=== PATIENT | female | born 1930 | race African-American/Black ===

== ENCOUNTER 2018-11-02 16:05 | Inpatient (IN) | payer MEDICARE, OTHER ==
[~2018-11-02] VITALS: Ht 162.6 cm; Wt 49.9 kg
--- NOTE | 2018-11-02 16:20 | NUR ---
ED Nurse Note: Patient brought into ED by her daughter from home due to left lower leg, foot swelling for 3 days. Daughter also reports that she is leaning towards her left side for 2 days. patient is alert awake, able to answer questions breathing unlabored and even.
--- NOTE | 2018-11-02 16:30 | Emergency Room Report ---
History of Present Illness General Chief Complaint: General Complaint Present Illness HPI Disclaimer: Please note that this report is being documented using [employer] technology. This can lead to erroneous entry secondary to incorrect interpretation by the dictating instrument. HPI: 88-year-old female with history of parkinsonism presents for evaluation of pain and swelling in the left leg. Symptoms have been present for approximately 4 days according to her daughter who is her primary chemic mangler. Cannot recall an injury or fall. Daughter notes that there have been several spiders found in the house and is afraid her mother may have been bitten by one. They note worsening swelling over the dorsum of the foot, left ankle, left calf and of the left knee. She is unable to fully extend the left knee due to pain and swelling. Patient usually ambulates with assistance and can no longer use a walker on her own due to increased tremors and worsening weakness. They deny fever, chills, cough, chest pain, shortness of breath, abdominal pain, vomiting, diarrhea or other signs of infection. No recent cuts/scrapes that either can recall. Denies history of gout or other inflammatory changes. Does have a history of osteoarthritis daughter also points out that her mother feels like she has been increasingly weak on the left side for over 1 month. They discussed this with her PMD at her last visit several weeks ago but no further work-up was performed. No change in that condition currently though they would like to be evaluated for it. PMH: Parkinson disease, osteoarthritis PSH: See chart Allergies: Penicillin, sulfa listed in medical record Social Hx: Denies drug or alcohol abuse Allergies: Coded Allergies: PENICILLINS (Unverified Allergy, Unknown, 11/02/18) SULFA (SULFONAMIDE ANTIBIOTICS) (Unverified Allergy, Unknown, 11/02/18) Uncoded Allergies: PENICILLIN (Allergy, Unknown, 11/02/18) SULFA (Allergy, Unknown, 11/02/18) Physical Exam Vital Signs Date Time Temp Pulse Resp B/P (MAP) Pulse Ox O2 Delivery O2 Flow Rate FiO2 11/02/18 16:11 98.8 96 20 166/71 (102) 99 Room Air General: Awake and alert, no acute distress HEENT: NC/AT. EOMI. Cardiovascular: Tachycardic. S1 and S2 normal. No murmur appreciated Resp: Normal work of breathing. No cough, wheezing or crackles appreciated Abdomen: Abdomen is soft, nondistended. Nontender Skin: Intact. No abrasions, laceration or rash over the exposed skin MSK: Decreased bulk bilaterally, frail. Moving all extremities. Knees are held in flexion bilaterally though significant pain with active and passive extension of the left knee. There is asymmetry in the lower extremities with 3 + pitting edema over the dorsum of the foot, left ankle, enlargement of the left calf and circumferential swelling of the left knee. There is overlying erythema and warmth at the left knee. There are palpable DP pulses bilaterally and there is good cap refill distally in the lower extremities. She is able to flex and extend the toes with limited flexion extension at the ankle secondary to swelling. This is stable. Neuro: Awake and alert. Mentating appropriately. Tremulous in the upper extremities. Sensation is intact over the dermatomes of the lower extremities bilaterally. Procedures Critical Care Time Critical Care Time Total critical care time: Approximately 45 minutes Due to a high probability of clinically significant, life threatening deterioration, the patient required the highest level of preparedness to intervene emergently and I personally spent this critical care time directly and personally managing the patient. This critical care time included obtaining a history, examining the patient, pulse oximetry, ordering and reviewing studies , ordering treatments, evaluating response to treatment and updating management plan as needed, frequent reassessment and discussion with other providers as well as arranging for ultimate disposition. This critical to care time was performed to assess and manage the high probability of life-threatening deterioration that could result in multiorgan failure. This critical care time is separate from the separately billable procedures and treating other patients. Additional Procedure Procedure Narrative Arthrocentesis left knee: He was palpated and appropriate landmarks were marked using a skin marking pen. Chlorhexidine was used to sterilize the field and sterile drapes were applied. Area was anesthetized with approximately 7 cc 1% lidocaine. A lateral approach of the left knee was taken with return of approximately 5 cc straw-colored, clear fluid. Patient tolerated the procedure well. No significant blood loss. No complications. She was neurologically intact at the start and end of the procedure. Medical Decision Making Diagnostic Impression: Primary Impression: DVT (deep venous thrombosis) Additional Impressions: UTI (urinary tract infection) Unilateral weakness Knee pain ER Course 88-year-old female presents for evaluation of 4 days worsening left lower extremity swelling, pain. She is tachycardic but afebrile. Differential includes but is not limited to osteoarthritis, DVT, occult injury, septic joint , gout, pseudogout, bursitis. Regarding the patient's left-sided weakness for rater than 1 month she can be followed up with nonemergent MRI however in the emergency department for us to rule out infectious causes of this lower extremity swelling as well as thromboembolic causes. Will obtain a lower extremity Doppler study and start septic work-up including blood cultures, IV fluids. X-rays of the knee are ordered. Can perform a arthrocentesis as needed. Laboratory Tests Test 11/02/18 16:25 11/02/18 18:21 11/02/18 18:59 White Blood Count 17.5 K/UL (4.8-10.8) H Red Blood Count 3.30 M/UL (4.20-5.40) L Hemoglobin 10.1 G/DL (12.0-16.0) L Hematocrit 30.2 % (37.0-47.0) L Mean Corpuscular Volume 92 FL (80-99) Mean Corpuscular Hemoglobin 30.4 PG (27.0-31.0) Mean Corpuscular Hemoglobin Concent 33.3 G/DL (32.0-36.0) Red Cell Distribution Width 11.0 % (11.6-14.8) L Platelet Count 427 K/UL (150-450) Mean Platelet Volume 6.1 FL (6.5-10.1) L Neutrophils (%) (Auto) 78.0 % (45.0-75.0) H Lymphocytes (%) (Auto) 13.0 % (20.0-45.0) L Monocytes (%) (Auto) 7.3 % (1.0-10.0) Eosinophils (%) (Auto) 0.5 % (0.0-3.0) Basophils (%) (Auto) 1.2 % (0.0-2.0) Erythrocyte Sedimentation Rate 96 MM/HR (0-30) H Prothrombin Time 10.5 SEC (9.30-11.50) Prothrombin Time INR 1.0 (0.9-1.1) PTT 30 SEC (23-33) Sodium Level 141 MMOL/L (136-145) Potassium Level 4.0 MMOL/L (3.5-5.1) Chloride Level 103 MMOL/L (98-107) Carbon Dioxide Level 28 MMOL/L (21-32) Anion Gap 10 mmol/L (5-15) Blood Urea Nitrogen 32 mg/dL (7-18) H Creatinine 0.8 MG/DL (0.55-1.30) Estimate Glomerular Filtration Rate mL/min (>60) Glucose Level 134 MG/DL (74-106) H Lactic Acid Level 1.60 mmol/L (0.4-2.0) Calcium Level 10.1 MG/DL (8.5-10.1) Phosphorus Level 2.6 MG/DL (2.5-4.9) Magnesium Level 2.3 MG/DL (1.8-2.4) Total Bilirubin 0.7 MG/DL (0.2-1.0) Aspartate Amino Transferase (AST) 13 U/L (15-37) L Alanine Aminotransferase (ALT) 28 U/L (12-78) Alkaline Phosphatase 51 U/L (46-116) Total Creatine Kinase 54 U/L (26-308) Creatine Kinase MB 0.9 NG/ML (0.0-3.6) Creatine Kinase MB Relative Index 1.6 Troponin I 0.000 ng/mL (0.000-0.056) C-Reactive Protein, Quantitative 17.7 mg/dL (0.00-0.90) H Total Protein 7.4 G/DL (6.4-8.2) Albumin 2.4 G/DL (3.4-5.0) L Globulin 5.0 g/dL Albumin/Globulin Ratio 0.5 (1.0-2.7) L Body Fluid Source Pending Body Fluid Volume Pending Body Fluid Appearance Pending Body Fluid RBC Pending Body Fluid Total Nucleated Cells Pending Synovial Fluid Crystals Pending Urine Color Yellow Urine Appearance Very cloudy Urine pH 6.5 (4.5-8.0) Urine Specific [place] 1.015 (1.005-1.035) Urine Protein 3+ (NEGATIVE) H Urine Glucose (UA) Negative (NEGATIVE) Urine Ketones 1+ (NEGATIVE) H Urine Blood 5+ (NEGATIVE) H Urine Nitrite Positive (NEGATIVE) H Urine Bilirubin Negative (NEGATIVE) Urine Urobilinogen Normal MG/DL (0.0-1.0) Urine Leukocyte Esterase 3+ (NEGATIVE) H Urine RBC 20-30 /HPF (0 - 2) H Urine WBC 40-60 /HPF (0 - 2) H Urine Squamous Epithelial Cells Few /LPF (NONE/OCC) Urine Bacteria Many /HPF (NONE) H EKG Diagnostic Results EKG Time: 16:33 Rate: tachycardiac Rhythm: NSR ST Segments: no acute changes Other Impression Sinus tachycardia, normal axis, normal intervals. No acute ST changes. Rhythm Strip Diag. Results Rhythm Strip Time: 16:33 EP Interpretation: yes Rate: 100s Rhythm: no PVC's, no ectopy Chest X-Ray Diagnostic Results Chest X-Ray Diagnostic Results : # of Views/Limited/Complete: 1 View Indication: Other - Sepsis EP Interpretation: Yes Interpretation: no consolidation, no effusion, no pneumothorax Impression: No acute disease Electronically Signed by: Electronically signed by Dr. Sarkis Mason Other X-Ray Diagnostic Results Other X-Ray Diagnostic Results : X-Ray ordered: Left knee # of Views/Limited Vs Complete: 3 View Indication: Swelling EP Interpretation: Yes Interpretation: other - Soft tissue swelling, no obvious fracture, loss of joint space Impression: Other - Soft tissue swelling Electronically Signed by: Electronically signed by Dr. Sarkis Mason Reevaluation Time: 19:17 Last Vital Signs Date Time Temp Pulse Resp B/P (MAP) Pulse Ox O2 Delivery O2 Flow Rate FiO2 11/02/18 16:11 98.8 96 20 166/71 (102) 99 Room Air Reevaluation Impression Lab work showed an elevated white count at 17.5 with a left shift and is elevated ESR and CRP concerning for septic joint. An arthrocentesis was performed which extracted straw-colored though clear fluid which is being sent for analysis. Lab work otherwise showed normal electrolytes, normal renal function, lactate within normal limits. Appears to have a urinary tract infection as well with 20-40 white cells, nitrate and leukocyte esterase positive urine and many bacteria. She was given vancomycin and ceftriaxone for treatment of septic joint empirically after arthrocentesis was performed. Lower extremity Doppler studies also showed acute DVT. She was given enoxaparin. She will require admission for treatment of UTI, possible septic joint, lower extremity DVT and for evaluation of greater than 1 month left- sided weakness. Disposition: XFER SHT-TRM HOSP Condition: Serious Sarkis Mason MD Nov 02, 2018 16:30
[2018-11-02] MEDS ORDERED: MULTIVITAMINS1 EAC8 ORAL (16:36)
[2018-11-02 16:51] LABS: BASOPHILS % (AUTO) 1.2 % (0.0-2.0); EOSINOPHILS % (AUTO) 0.5 % (0.0-3.0); HEMATOCRIT 30.2 % (37.0-47.0); HEMOGLOBIN 10.1 G/DL (12.0-16.0); MEAN CORPUSCULAR VOLUME 92 FL (80-99); MONOCYTES % (AUTO) 7.3 % (1.0-10.0); PLATELET COUNT 427 K/UL (150-450); WHITE BLOOD COUNT 17.5 K/UL (4.8-10.8)
[2018-11-02 16:52] VITALS: BP 168/71
[2018-11-02 16:59] LABS: ANION GAP 10 mmol/L (5-15); BLOOD UREA NITROGEN 32 mg/dL (7-18); CALCIUM 10.1 MG/DL (8.5-10.1); CARBON DIOXIDE 28 MMOL/L (21-32); CHLORIDE 103 MMOL/L (98-107); CREATININE 0.8 MG/DL (0.55-1.30); SODIUM 141 MMOL/L (136-145)
[2018-11-02 17:12] LABS: ALANINE AMINOTRANSFERASE 28 U/L (12-78); ALBUMIN 2.4 G/DL (3.4-5.0); ALBUMIN/GLOBULIN RATIO 0.5 (1.0-2.7); ALKALINE PHOSPHATASE 51 U/L (46-116); ASPARTATE AMINO TRANSFERASE 13 U/L (15-37); BILIRUBIN,TOTAL 0.7 MG/DL (0.2-1.0); CKMB 0.9 NG/ML (0.0-3.6); CREATINE KINASE 54 U/L (26-308); PHOSPHORUS 2.6 MG/DL (2.5-4.9)
[2018-11-02] MEDS ORDERED: Lidocaine 1% 10mg/ml/Epi 0.005mg/ml 10ml vial INJ ONE (17:30)
[2018-11-02] MEDS ORDERED: cefTRIAXone 1 GM in NS 55 ML IVPB ONE (18:15)
[2018-11-02] MEDS ORDERED: Vancomycin 1 GM in NS 275 ML IVPB ONE (18:15)
[2018-11-02] MEDS ORDERED: Enoxaparin 80mg Inj SUBQ SCH ×2 (18:45→21:00)
[2018-11-02 18:46] VITALS: BP 159/50
--- NOTE | 2018-11-02 18:47 | NUR ---
ED Nurse Note: daughter at bedside. patient incontinent, changed linens, patient kept clean and dry.
--- NOTE | 2018-11-02 19:00 | NUR ---
ED Nurse Note: Indwelling mazariegos placed using sterile technique without complication.
[2018-11-02 19:06] LABS: APPEARANCE,URINE VERY CLOUDY; BILIRUBIN, URINE NEGATIVE (NEGATIVE); COLOR,URINE YELLOW; GLUCOSE, URINE (UA) NEGATIVE (NEGATIVE); KETONES,URINE 1+ (NEGATIVE); LEUKOCYTE ESTERASE ,URINE 3+ (NEGATIVE); NITRITE,URINE POSITIVE (NEGATIVE); PH,URINE 6.5 (4.5-8.0); PROTEIN,URINE 3+ (NEGATIVE); UROBILINOGEN,URINE NORMAL MG/DL (0.0-1.0)
--- NOTE | 2018-11-02 19:14 | NUR ---
HAND-OFF: Report given to Carol SALAS/ Yamileth RN. patient is stable in bed. daughter at bedside. warm blankets provided for the patient. water provided as requested.
--- NOTE | 2018-11-02 19:17 | NUR ---
ED Nurse Note: Received report from Dai SALAS. Patient alert and oriented, verbally responsive. No SOB. Safety precaution observed. Has temp 100.8, notified. Family members at bedside.
[2018-11-02 19:20] VITALS: BP 128/61
[2018-11-02] MEDS ORDERED: Acetaminophen 500mg (ES) tab ORAL ONE (19:30)
--- NOTE | 2018-11-02 19:45 | NUR ---
ED Nurse Note: noted mazariegos cath 16 fr, patent and intact, per RN Dai report, ERMD ordered mazariegos cath, verified with ERMD and reminded regarding order, will follow up.
--- NOTE | 2018-11-02 20:20 | NUR ---
ED Nurse Note: Report given to Gómez SALAS from Tele.
[2018-11-02 20:25] VITALS: BP 145/76
--- NOTE | 2018-11-02 20:25 | NUR ---
ED Nurse Note: pt transferred to tele on secured entrance monitor, Sinus rhythm, vss, resp even and unlabored on RA, iv intact and patent, pt has no belongings, belonging list sent, belongings were endorsed to pt's daughter. pt family at the bedside. care endorsed to MARITZA Magaña from tele.
--- NOTE | 2018-11-02 20:26 | NUR ---
NURSE NOTES: pt received from MARITZA oMntejo. a/ox3. no s/s of distress. VS 145/76, 87 HR, 97% ra, 99.5F, 18. no reports of pain. accompanied by daughter at bedside. pt has partial thickness ulcer on sacral area 2x1 cm, blister noted on left medial bunion. wound care photos taken, wound care protocol initiated. belongings with pt at bedside upon transfer - gait belt, pants, shirt and flip flops. per family member, she will take home the belongings. surveillance monitor on - sinus rhythm 85. pt arrived on unit with mazariegos, patent and draining. IV site on left arm 20 gauge, asymptomatic.
--- NOTE | 2018-11-02 22:15 | NUR ---
NURSE NOTES: per pt and family member, pt only takes multivitamin. received admission orders from Dr Sloan, noted and carried out. will continue to monitor pt.
[2018-11-03] VITALS: BP 153/49
--- NOTE | 2018-11-03 02:45 | Consultation ---
DATE OF CONSULTATION: 11/02/2018 CARDIOLOGY CONSULTATION CONSULTING PHYSICIAN: Ramy Franks M.D. REQUESTING PHYSICIAN: Anastacio Sloan M.D. REASON FOR CONSULTATION: Acute deep venous thrombosis of the left lower extremity. HISTORY OF PRESENT ILLNESS: This is an 88-year-old female. She has Parkinson's disease. She has had swelling and pain of her left leg for several weeks and even a month, weakness of the extremity has been noted as well. She has not had any associated chest pain or shortness of breath. There has been worsening redness and swelling of the left foot, calf, and knee especially and limited mobility as well. The patient's evaluation in the emergency room included a venous duplex scan that revealed an acute thrombus. Cardiovascular consultation has been requested. PAST MEDICAL HISTORY: Includes Parkinson's disease and osteoarthritis. ALLERGIES: Include sulfa and penicillin. MEDICATIONS: Prior to admission, reviewed and reconciled. SOCIAL HISTORY: Negative for smoking, alcohol, or substance abuse. FAMILY HISTORY: Noncontributory. REVIEW OF SYSTEMS: No fevers or chills. No prior history of abnormal blood clotting. No history of asthma. No history of heart attack or high blood pressure. She does have arthritis. No history of seizure or stroke. No known history of diabetes or thyroid disorder. No known history of heart attack, irregular heartbeats, or rheumatic heart disease. PHYSICAL EXAMINATION: VITAL SIGNS: Blood pressure 166/71, pulse 96, respirations 20, afebrile. HEENT: Normocephalic and atraumatic. Conjunctivae pink. Oropharynx clear. NECK: Supple. No accessory muscle use. LUNGS: Clear. CARDIAC: Regular rhythm. Rapid rate. Normal S1, S2. No murmur. Point of maximal pulse sustained. No heaves or thrills. ABDOMEN: Soft and nontender. EXTREMITIES: Without edema other than the left leg, which is swollen and has 3+ edema and decreased mobility of the knee joint as well as tenderness in the calf. LABORATORY DATA: Reviewed. IMPRESSION: 1. Acute DVT, possible pulmonary emboli. 2. Sinus tachycardia. 3. Urinary tract infection. 4. History of Parkinson's disease. 5. Leukocytosis, possible sepsis. 6. Severe protein-calorie malnutrition. 7. Prerenal azotemia. PLAN: 1. Cardiac monitoring. 2. Full anticoagulation. 3. Consider VQ scan. 4. Empiric antimicrobials. 5. No role for antiarrhythmics at this time. 6. Maintain adequate hydration. 7. We will follow. Ramy Fransk M.D. DR: NICOLE JOB#: [id number] CC:
[2018-11-03 04:00] VITALS: BP 146/53
[2018-11-03 06:43] LABS: BASOPHILS % (AUTO) 0.8 % (0.0-2.0); EOSINOPHILS % (AUTO) 1.7 % (0.0-3.0); HEMATOCRIT 29.4 % (37.0-47.0); HEMOGLOBIN 9.1 G/DL (12.0-16.0); LYMPHOCYTES % (AUTO) 14.5 % (20.0-45.0); MEAN CORPUSCULAR VOLUME 97 FL (80-99); MONOCYTES % (AUTO) 8.5 % (1.0-10.0); NEUTROPHILS % (AUTO) 74.5 % (45.0-75.0); PLATELET COUNT 404 K/UL (150-450); RED BLOOD COUNT 3.05 M/UL (4.20-5.40); RED CELL DISTRIBUTION WIDTH 12.2 % (11.6-14.8)
[2018-11-03 07:17] LABS: ANION GAP 10 mmol/L (5-15); BLOOD UREA NITROGEN 23 mg/dL (7-18); CALCIUM 9.4 MG/DL (8.5-10.1); CARBON DIOXIDE 23 MMOL/L (21-32); CHLORIDE 108 MMOL/L (98-107); CREATININE 0.6 MG/DL (0.55-1.30); POTASSIUM 3.6 MMOL/L (3.5-5.1); SODIUM 141 MMOL/L (136-145)
[2018-11-03] MEDS ORDERED: Enoxaparin 60mg Inj SUBQ SCH (07:30)
--- NOTE | 2018-11-03 07:51 | NUR ---
HAND-OFF: Report given to MARITZA Zendejas. Plan of care endorsed.
--- NOTE | 2018-11-03 07:56 | NUR ---
NURSE NOTES: Nurse report given by MARITZA Magaña. Patient's resting in bed, denies pain, no s/s of stress or SOB. Patient is bed rest, IV is patent and flushed well, asymptomatic. Bed at lowest position, break engaged, call light within reach, side rails x 2, safety precaution is on. Piña is draining well. L leg is swollen below the knee, left foot blister, sacral wound, pictures are taken. Will continue to monitor.
[2018-11-03 08:00] VITALS: BP 149/65
--- NOTE | 2018-11-03 09:29 | NUR ---
CASE MANAGEMENT:REVIEW 88 YR OLD FEMALE BROUGHT TO ER BY DAUGHTER CC: LLE SWELLING WITH REDNESS X2 DAYS SI: DVT. UTI. KNEE PAIN UNILATERAL WEAKNESS 100.8 96 20 166/71 99% ON RA WBC+17.5 IS: 1.5L NS BOLUS IV VANCOMYCIN IV ROCEPHIN LOVENOX SQ XRAY KNEE CHEST XRAY BLOOD CX LT KNEE ASPIRATION IN ER : TO TELEMETRY PLAN: WORK UP IN PROGRESS ~ POSSIBLE SEPTIC JOINT INTERQUAL CRITERIA MET
--- NOTE | 2018-11-03 10:41 | Diagnostic Imaging Report ---
Indication: Left lower extremity pain Technique: Grayscale and duplex images of the left lower extremity veins Comparison: none Findings: On the left, grayscale and duplex images demonstrate occlusive thrombus within the common femoral, femoral, and popliteal veins. This results in absence of blood flow and noncompressibility. Thrombus is somewhat hypoechoic, likely acute. There is edema of the subcutaneous fat. Calf veins are patent. Impression: Positive for acute thrombus within the left common femoral, femoral, and popliteal veins This agrees with the preliminary interpretation provided overnight by Dr. Muro
--- NOTE | 2018-11-03 10:54 | NUR ---
*-* INSURANCE *-* ALL CLINICALS AND REVIEWS HAVE BEEN FAXED TO: ANDRADE KOVACS [facility]#[id number] [employer] FIELD SUPERVISOR: QUINN #[phone] FAX#[phone] REVIEWS/CLINICALS
[2018-11-03 12:00] VITALS: BP 135/54
--- NOTE | 2018-11-03 12:28 | Infectious Diseases Prog Note ---
Assessment/Plan Assessment/Plan Full consult dictated: A) 1) uti/pyelonephritis, sepsis, leukocytosis, fevers 2) left foot/great toe cellulitis, possible abscess 3) dvt 4) pmh noted 5) allergies - pcn, sulfa P) 1) vancomycin, amikacin, vancomycin 2) check cultures, surgery evaluation right foot 3) monitor labs 4) thank you Subjective Allergies: Coded Allergies: PENICILLINS (Unverified Allergy, Unknown, 11/02/18) SULFA (SULFONAMIDE ANTIBIOTICS) (Unverified Allergy, Unknown, 11/02/18) Uncoded Allergies: PENICILLIN (Allergy, Unknown, 11/02/18) SULFA (Allergy, Unknown, 11/02/18) Objective Vital Signs Last 24 Hour Vital Signs Date Time Temp Pulse Resp B/P (MAP) Pulse Ox O2 Delivery O2 Flow Rate FiO2 11/03/18 12:00 98.8 90 20 135/54 (81) 97 11/03/18 09:00 Room Air 11/03/18 08:00 97.8 99 18 149/65 (93) 96 11/03/18 08:00 87 11/03/18 04:00 99.1 82 16 146/53 (84) 97 11/03/18 04:00 80 11/03/18 00:00 98.6 77 18 153/49 (83) 96 11/03/18 00:00 74 11/02/18 21:00 Room Air 11/02/18 20:55 Room Air 11/02/18 20:41 88 11/02/18 20:25 99.2 87 16 123/86 98 Room Air 11/02/18 20:25 99.5 85 19 145/76 (99) 97 11/02/18 19:54 100.8 11/02/18 19:40 92 18 Room Air 11/02/18 19:20 100.8 92 28 128/61 100 Room Air 11/02/18 18:46 98.8 92 21 159/50 100 Room Air 11/02/18 16:53 96 20 Room Air 11/02/18 16:52 98.8 91 22 168/71 98 Room Air 11/02/18 16:11 98.8 96 20 166/71 (102) 99 Room Air Height (Feet): 5 Height (Inches): 4.00 Weight (Pounds): 110 Microbiology Date/Time Source Procedure Growth Status 11/02/18 18:59 Urine,Clean Catch Urine Culture - Preliminary Resulted Laboratory Tests Test 11/02/18 16:25 11/02/18 18:21 11/02/18 18:59 11/03/18 05:42 White Blood Count 17.5 K/UL (4.8-10.8) H 14.0 K/UL (4.8-10.8) H Red Blood Count 3.30 M/UL (4.20-5.40) L 3.05 M/UL (4.20-5.40) L Hemoglobin 10.1 G/DL (12.0-16.0) L 9.1 G/DL (12.0-16.0) L Hematocrit 30.2 % (37.0-47.0) L 29.4 % (37.0-47.0) L Mean Corpuscular Volume 92 FL (80-99) 97 FL (80-99) Mean Corpuscular Hemoglobin 30.4 PG (27.0-31.0) 29.8 PG (27.0-31.0) Mean Corpuscular Hemoglobin Concent 33.3 G/DL (32.0-36.0) 30.9 G/DL (32.0-36.0) L Red Cell Distribution Width 11.0 % (11.6-14.8) L 12.2 % (11.6-14.8) Platelet Count 427 K/UL (150-450) 404 K/UL (150-450) Mean Platelet Volume 6.1 FL (6.5-10.1) L 6.5 FL (6.5-10.1) Neutrophils (%) (Auto) 78.0 % (45.0-75.0) H 74.5 % (45.0-75.0) Lymphocytes (%) (Auto) 13.0 % (20.0-45.0) L 14.5 % (20.0-45.0) L Monocytes (%) (Auto) 7.3 % (1.0-10.0) 8.5 % (1.0-10.0) Eosinophils (%) (Auto) 0.5 % (0.0-3.0) 1.7 % (0.0-3.0) Basophils (%) (Auto) 1.2 % (0.0-2.0) 0.8 % (0.0-2.0) Erythrocyte Sedimentation Rate 96 MM/HR (0-30) H Prothrombin Time 10.5 SEC (9.30-11.50) Prothromb Time International Ratio 1.0 (0.9-1.1) Activated Partial Thromboplast Time 30 SEC (23-33) Sodium Level 141 MMOL/L (136-145) 141 MMOL/L (136-145) Potassium Level 4.0 MMOL/L (3.5-5.1) 3.6 MMOL/L (3.5-5.1) Chloride Level 103 MMOL/L (98-107) 108 MMOL/L (98-107) H Carbon Dioxide Level 28 MMOL/L (21-32) 23 MMOL/L (21-32) Anion Gap 10 mmol/L (5-15) 10 mmol/L (5-15) Blood Urea Nitrogen 32 mg/dL (7-18) H 23 mg/dL (7-18) H Creatinine 0.8 MG/DL (0.55-1.30) 0.6 MG/DL (0.55-1.30) Estimat Glomerular Filtration Rate mL/min (>60) mL/min (>60) Glucose Level 134 MG/DL (74-106) H 106 MG/DL (74-106) Lactic Acid Level 1.60 mmol/L (0.4-2.0) Calcium Level 10.1 MG/DL (8.5-10.1) 9.4 MG/DL (8.5-10.1) Phosphorus Level 2.6 MG/DL (2.5-4.9) Magnesium Level 2.3 MG/DL (1.8-2.4) Total Bilirubin 0.7 MG/DL (0.2-1.0) Aspartate Amino Transf (AST/SGOT) 13 U/L (15-37) L Alanine Aminotransferase (ALT/SGPT) 28 U/L (12-78) Alkaline Phosphatase 51 U/L (46-116) Total Creatine Kinase 54 U/L (26-308) Creatine Kinase MB 0.9 NG/ML (0.0-3.6) Creatine Kinase MB Relative Index 1.6 Troponin I 0.000 ng/mL (0.000-0.056) 0.000 ng/mL (0.000-0.056) C-Reactive Protein, Quantitative 17.7 mg/dL (0.00-0.90) H Total Protein 7.4 G/DL (6.4-8.2) Albumin 2.4 G/DL (3.4-5.0) L Globulin 5.0 g/dL Albumin/Globulin Ratio 0.5 (1.0-2.7) L Body Fluid Source Synovial Body Fluid Volume 2 mL Body Fluid Appearance Hazy (Clear) Body Fluid RBC 03660 /CUMM Body Fluid Total Nucleated Cells 574 /CUMM Synovial Fluid Crystals Pending Urine Color Yellow Urine Appearance Very cloudy Urine pH 6.5 (4.5-8.0) Urine Specific [place] 1.015 (1.005-1.035) Urine Protein 3+ (NEGATIVE) H Urine Glucose (UA) Negative (NEGATIVE) Urine Ketones 1+ (NEGATIVE) H Urine Blood 5+ (NEGATIVE) H Urine Nitrite Positive (NEGATIVE) H Urine Bilirubin Negative (NEGATIVE) Urine Urobilinogen Normal MG/DL (0.0-1.0) Urine Leukocyte Esterase 3+ (NEGATIVE) H Urine RBC 20-30 /HPF (0 - 2) H Urine WBC 40-60 /HPF (0 - 2) H Urine Squamous Epithelial Cells Few /LPF (NONE/OCC) Urine Bacteria Many /HPF (NONE) H Current Medications Medications (Trade) Dose Ordered Sig/[place] Route PRN Reason Start Time Stop Time Status Last Admin Dose Admin Acetaminophen (Tylenol) 650 mg Q6H PRN ORAL Mild Pain/Temp > 100.5 11/02/18 22:30 12/02/18 22:29 Enoxaparin Sodium (Lovenox) 50 mg Q12HR SUBQ 11/03/18 21:00 12/03/18 20:59 Levofloxacin 50 ml @ 50 mls/hr Q24H IVPB 11/04/18 00:30 11/11/18 00:29 Florina Young MD Nov 03, 2018 12:28
[2018-11-03] MEDS ORDERED: Amikacin Rx to dose MISC PRN (12:30)
--- NOTE | 2018-11-03 13:23 | NUR ---
RD ASSESSMENT & RECOMMENDATIONS SEE CARE ACTIVITY FOR COMPLETE ASSESSMENT DAILY ESTIMATED NEEDS: Needs based on Underweight, wound healing/ 49kg 30-35 kcals/kg 8814-2017 total kcals 1.25-1.5 g protein/kg 61-74 g total protein 25-30 mL/kg 7223-8225 total fluid mLs NUTRITION DIAGNOSIS: Increased kcal/prot needs R/T underweight status and wound healing as evidenced by pt @ 83% IBW w/ BMI of 17.4, admitted w/ sacral open wound per photo, pending eval. CURRENT DIET:REGULAR, finely chopped PO DIET RECOMMENDATIONS: Liberalized REGULAR/ texture as tolerated ADDITIONAL RECOMMENDATIONS: * Weekly calibrated bedscale wt monitoring- underweight * Wound healing: add MVI x 1, Vit C 500mg QD : add ZnSO4 220mg QD x 10 days : Terrell 1pkt BID * Ensure Enlive TID w/ meals * Monitor PO intake closely
--- NOTE | 2018-11-03 14:08 | Diagnostic Imaging Report ---
Indication: Shortness of breath Technique: One view of the chest Comparison: none Findings: No acute infiltrates, effusions, or congestion. Tortuous calcified aorta. Normal heart size. Upper mediastinum unremarkable. Impression: No acute process.
--- NOTE | 2018-11-03 14:09 | Diagnostic Imaging Report ---
Indication: Left knee pain Technique: 3 views of the left knee Comparison: None Findings: There is a suprapatellar effusion. There is severe degenerative narrowing of the lateral joint compartment, with obliteration of the joint space, subchondral sclerosis, and marked degenerative remodeling of the articular surfaces. No acute fractures. No dislocations. Impression: Evidence of joint effusion Severe lateral compartmental degenerative changes, as described No acute bony trauma
[2018-11-03] MEDS: Vancomycin 500mg/D5W 110ml IVPB SCH ×2 (14:13)
[2018-11-03 16:00] VITALS: BP 139/55
--- NOTE | 2018-11-03 16:19 | Consultation ---
History of Present Illness General Date patient seen: Nov 03, 2018 Reason for Hospitalization: General Complaint Present Illness HPI 88-year-old female with history of Parkinson's who presented [place] [facility] for evaluation of pain and swelling in the left leg. Symptoms have been present for approximately 4 days according to her daughter who is her primary assistant property manager. no history of trauma or injury. Per report, daughter notes that there have been several spiders found in the house and is afraid her mother may have been bitten by one in her foot. They note worsening swelling over the dorsum of the foot, left ankle, left calf and of the left knee. She is unable to fully extend the left knee due to pain and swelling. Patient usually ambulates with assistance and can no longer use a walker on her own due to increased tremors and worsening weakness. They deny fever, chills, cough, chest pain, shortness of breath, abdominal pain, vomiting, diarrhea or other signs of infection. No recent cuts/scrapes that either can recall. Denies history of gout or other inflammatory changes. Does have a history of osteoarthritis daughter also points out that her mother feels like she has been increasingly weak on the left side for over 1 month. They discussed this with her PMD at her last visit several weeks ago but no further work-up was performed. Admitted for care and management Surgery called to evaluate for possible animal bite vs trauma vs skin disorder / wound Allergies: Coded Allergies: PENICILLINS (Unverified Allergy, Unknown, 11/02/18) SULFA (SULFONAMIDE ANTIBIOTICS) (Unverified Allergy, Unknown, 11/02/18) Uncoded Allergies: PENICILLIN (Allergy, Unknown, 11/02/18) SULFA (Allergy, Unknown, 11/02/18) Medication History Scheduled Multivitamin With Minerals (Multivitamins With Minerals*), 1 TAB ORAL DAILY, ( Reported) Patient History Limited by: medical condition History Provided By: Family Member, Medical Record, PMD Healthcare decision maker Resuscitation status Full Code Advanced Directive on File No Past Medical/Surgical History Past Medical/Surgical History: (1) Cellulitis of left foot (2) UTI (urinary tract infection) (3) Knee pain (4) Unilateral weakness (5) DVT (deep venous thrombosis) Review of Systems Review of Symptoms General ROS: no weight loss or fever Psychological ROS: no depression or mood changes, no memory loss Ophthalmic ROS: no visual changes or eye irritation ENT ROS: no nasal congestion, hearing loss, dizziness Allergy and Immunology ROS: no allergic symptoms or urticaria Hematological and Lymphatic ROS: no swollen glands, unusual bleeding or bruising Endocrine ROS: no polyuria, polydipsia, weight changes, temperature intolerance Respiratory ROS: no cough, shortness of breath, or wheezing Cardiovascular ROS: no chest pain or dyspnea on exertion Gastrointestinal ROS: denies abdominal pain, no bright red blood in stool. Musculoskeletal ROS: no myalgias or arthralgias Neurological ROS: no TIA or stroke symptoms Dermatological ROS: no new or changing skin lesions, rashes or pruritis Physical Exam Physical Exam General appearance: alert, cooperative, no distress, appears stated age Head: Normocephalic, without obvious abnormality, atraumatic Eyes: conjunctivae/corneas clear. PERRL, EOM's intact. Fundi benign Throat: Lips, mucosa, and tongue normal. Teeth and gums normal Neck: supple, symmetrical, trachea midline, no adenopathy, thyroid: not enlarged, symmetric, no tenderness/mass/nodules, no carotid bruit and no JVD Lungs: clear to auscultation bilaterally Heart: regular rate and rhythm, S1, S2 normal, no murmur, click, rub or gallop Abdomen: soft, non-tender. Bowel sounds normal. No masses, no organomegaly Extremities: extremities normal, mild cellulitis vs edema of left foot Pulses: 2+ and symmetric Skin: Skin color, texture, turgor normal. No rashes or lesions Neurologic: Grossly normal Last 24 Hour Vital Signs Date Time Temp Pulse Resp B/P (MAP) Pulse Ox O2 Delivery O2 Flow Rate FiO2 11/03/18 12:00 91 11/03/18 12:00 98.8 90 20 135/54 (81) 97 11/03/18 09:00 Room Air 11/03/18 08:00 97.8 99 18 149/65 (93) 96 11/03/18 08:00 87 11/03/18 04:00 99.1 82 16 146/53 (84) 97 11/03/18 04:00 80 11/03/18 00:00 98.6 77 18 153/49 (83) 96 11/03/18 00:00 74 11/02/18 21:00 Room Air 11/02/18 20:55 Room Air 11/02/18 20:41 88 9/4/19 20:25 99.2 87 16 123/86 98 Room Air 11/02/18 20:25 99.5 85 19 145/76 (99) 97 11/02/18 19:54 100.8 11/02/18 19:40 92 18 Room Air 11/02/18 19:20 100.8 92 28 128/61 100 Room Air 11/02/18 18:46 98.8 92 21 159/50 100 Room Air 11/02/18 16:53 96 20 Room Air 11/02/18 16:52 98.8 91 22 168/71 98 Room Air Intake and Output 11/02/18 11/03/18 19:00 07:00 Intake Total 120 ml Output Total 300 ml Balance -180 ml Intake Oral 20 ml IV Total 100 ml Output Urine Total 300 ml Laboratory Tests Test 11/02/18 16:25 11/02/18 18:21 11/02/18 18:59 11/03/18 05:42 White Blood Count 17.5 K/UL (4.8-10.8) H 14.0 K/UL (4.8-10.8) H Red Blood Count 3.30 M/UL (4.20-5.40) L 3.05 M/UL (4.20-5.40) L Hemoglobin 10.1 G/DL (12.0-16.0) L 9.1 G/DL (12.0-16.0) L Hematocrit 30.2 % (37.0-47.0) L 29.4 % (37.0-47.0) L Mean Corpuscular Volume 92 FL (80-99) 97 FL (80-99) Mean Corpuscular Hemoglobin 30.4 PG (27.0-31.0) 29.8 PG (27.0-31.0) Mean Corpuscular Hemoglobin Concent 33.3 G/DL (32.0-36.0) 30.9 G/DL (32.0-36.0) L Red Cell Distribution Width 11.0 % (11.6-14.8) L 12.2 % (11.6-14.8) Platelet Count 427 K/UL (150-450) 404 K/UL (150-450) Mean Platelet Volume 6.1 FL (6.5-10.1) L 6.5 FL (6.5-10.1) Neutrophils (%) (Auto) 78.0 % (45.0-75.0) H 74.5 % (45.0-75.0) Lymphocytes (%) (Auto) 13.0 % (20.0-45.0) L 14.5 % (20.0-45.0) L Monocytes (%) (Auto) 7.3 % (1.0-10.0) 8.5 % (1.0-10.0) Eosinophils (%) (Auto) 0.5 % (0.0-3.0) 1.7 % (0.0-3.0) Basophils (%) (Auto) 1.2 % (0.0-2.0) 0.8 % (0.0-2.0) Erythrocyte Sedimentation Rate 96 MM/HR (0-30) H Prothrombin Time 10.5 SEC (9.30-11.50) Prothromb Time International Ratio 1.0 (0.9-1.1) Activated Partial Thromboplast Time 30 SEC (23-33) Sodium Level 141 MMOL/L (136-145) 141 MMOL/L (136-145) Potassium Level 4.0 MMOL/L (3.5-5.1) 3.6 MMOL/L (3.5-5.1) Chloride Level 103 MMOL/L (98-107) 108 MMOL/L (98-107) H Carbon Dioxide Level 28 MMOL/L (21-32) 23 MMOL/L (21-32) Anion Gap 10 mmol/L (5-15) 10 mmol/L (5-15) Blood Urea Nitrogen 32 mg/dL (7-18) H 23 mg/dL (7-18) H Creatinine 0.8 MG/DL (0.55-1.30) 0.6 MG/DL (0.55-1.30) Estimat Glomerular Filtration Rate mL/min (>60) mL/min (>60) Glucose Level 134 MG/DL (74-106) H 106 MG/DL (74-106) Lactic Acid Level 1.60 mmol/L (0.4-2.0) Calcium Level 10.1 MG/DL (8.5-10.1) 9.4 MG/DL (8.5-10.1) Phosphorus Level 2.6 MG/DL (2.5-4.9) Magnesium Level 2.3 MG/DL (1.8-2.4) Total Bilirubin 0.7 MG/DL (0.2-1.0) Aspartate Amino Transf (AST/SGOT) 13 U/L (15-37) L Alanine Aminotransferase (ALT/SGPT) 28 U/L (12-78) Alkaline Phosphatase 51 U/L (46-116) Total Creatine Kinase 54 U/L (26-308) Creatine Kinase MB 0.9 NG/ML (0.0-3.6) Creatine Kinase MB Relative Index 1.6 Troponin I 0.000 ng/mL (0.000-0.056) 0.000 ng/mL (0.000-0.056) C-Reactive Protein, Quantitative 17.7 mg/dL (0.00-0.90) H Total Protein 7.4 G/DL (6.4-8.2) Albumin 2.4 G/DL (3.4-5.0) L Globulin 5.0 g/dL Albumin/Globulin Ratio 0.5 (1.0-2.7) L Body Fluid Source Synovial Body Fluid Volume 2 mL Body Fluid Appearance Hazy (Clear) Body Fluid RBC 47285 /CUMM Body Fluid Total Nucleated Cells 574 /CUMM Synovial Fluid Crystals See commment Urine Color Yellow Urine Appearance Very cloudy Urine pH 6.5 (4.5-8.0) Urine Specific [place] 1.015 (1.005-1.035) Urine Protein 3+ (NEGATIVE) H Urine Glucose (UA) Negative (NEGATIVE) Urine Ketones 1+ (NEGATIVE) H Urine Blood 5+ (NEGATIVE) H Urine Nitrite Positive (NEGATIVE) H Urine Bilirubin Negative (NEGATIVE) Urine Urobilinogen Normal MG/DL (0.0-1.0) Urine Leukocyte Esterase 3+ (NEGATIVE) H Urine RBC 20-30 /HPF (0 - 2) H Urine WBC 40-60 /HPF (0 - 2) H Urine Squamous Epithelial Cells Few /LPF (NONE/OCC) Urine Bacteria Many /HPF (NONE) H Microbiology Date/Time Source Procedure Growth Status 11/02/18 18:59 Urine,Clean Catch Urine Culture - Preliminary Resulted Height (Feet): 5 Height (Inches): 4.00 Weight (Pounds): 110 Medications Current Medications Medications (Trade) Dose Ordered Sig/Preston Route PRN Reason Start Time Stop Time Status Last Admin Dose Admin Acetaminophen (Tylenol) 650 mg Q6H PRN ORAL Mild Pain/Temp > 100.5 11/02/18 22:30 12/02/18 22:29 Amikacin Protocol (Amikacin pharmacy to dose) 1 ea DAILY PRN MISC Per rx protocol 11/03/18 12:30 12/03/18 12:29 Amikacin Sulfate 750 mg/Sodium Chloride 113 ml @ 113 mls/hr Q48H IV 11/03/18 17:00 11/10/18 16:59 Enoxaparin Sodium (Lovenox) 50 mg Q12HR SUBQ 11/03/18 21:00 12/03/18 20:59 Levofloxacin 50 ml @ 50 mls/hr Q24H IVPB 11/04/18 00:30 11/11/18 00:29 Vancomycin HCl (Vanco rx to dose) 1 ea DAILY PRN MISC Per rx protocol 11/03/18 12:30 12/03/18 12:29 Vancomycin HCl 500 mg/Dextrose 110 ml @ 110 mls/hr Q24H IVPB 11/03/18 15:00 11/08/18 14:59 11/03/18 14:13 Assessment/Plan Problem List: (1) Cellulitis of left foot Assessment & Plan: Leukocytosis elevated ESR abnormal labs afebrile, HD stable does also have UTI wound evaluated and seems more like edema with skin blister. possible animal bite but unlikely as serous blister more consistent with exam will monitor and follow with recs thank you IV abx as per ID Tx UTI ICD Codes: L03.116 - Cellulitis of left lower limb SNOMED: [id number] (2) Knee pain Assessment & Plan: Findings: There is a suprapatellar effusion. There is severe degenerative narrowing of the lateral joint compartment, with obliteration of the joint space, subchondral sclerosis, and marked degenerative remodeling of the articular surfaces. No acute fractures. No dislocations. Impression: Evidence of joint effusion Severe lateral compartmental degenerative changes, as described No acute bony trauma no acute intervention planned outpatient ortho f/u and re-evaluation for possible aspiration ICD Codes: M25.569 - Pain in unspecified knee SNOMED: [id number] Jake Claire Nov 03, 2018 16:19
[2018-11-03] MEDS ORDERED: Amikacin 750 MG in NS 110 ML IV SCH (17:00)
--- NOTE | 2018-11-03 17:45 | Consultation ---
DATE OF CONSULTATION: 11/03/2018 CONSULTING PHYSICIAN: Felipe Verdugo M.D. CHIEF COMPLAINT: Left knee pain. HISTORY OF PRESENT ILLNESS: The patient is a pleasant 88-year-old female, who was recently admitted for a DVT in the left lower extremity. Orthopedic consultation obtained for further care and recommendations for the left knee. The patient has stiffness and pain in the left knee. She does have Parkinson's. She ambulates with assistance. PAST MEDICAL HISTORY: Reviewed in the intake chart. SURGICAL HISTORY: Reviewed in the intake chart. MEDICATIONS: Reviewed in the intake chart. PHYSICAL EXAMINATION: GENERAL: The patient is resting comfortably in bed. She does have Parkinson's. She is very slow in her speech. She is alert. VITAL SIGNS: Afebrile. Stable vital signs. EXTREMITIES: Left hip examination shows pain on the lateral joint line. She was some tenderness in the hamstring. Posterior calf is soft. IMAGING: Left knee showed advanced lateral compartment arthrosis with valgus deformity. ASSESSMENT: 1. Left knee end-stage osteoarthritis. 2. Left lower extremity DVT. DISCUSSION: At this point, she has pretty advanced lateral compartment arthrosis, but given her age and her comorbidities, she is not a good candidate for any type of surgical intervention. What I recommend is appropriate treatment for the blood clot. In terms of left knee, she can consider maybe a lateral off-front loader residential driver brace or intraarticular cortisone injection. If the patient still has any pain or discomfort, she can followup up as an outpatient for further care and recommendations. Felipe Verdugo M.D. DR: SERA JOB#: [id number] CC: CHRISTOPHER
--- NOTE | 2018-11-03 19:00 | History and Physical Report ---
DATE OF ADMISSION: 11/02/2018 HISTORY OF PRESENT ILLNESS: This 88-year-old female with a history of Parkinson disease. She is typically homebound, however, has a wheelchair. The patient's information provided by daughter at bedside. The patient has been reported swelling and pain in the left leg for several weeks and also weakness. She was seen and worked up in the ER and was found to have DVT of left popliteal. She also had significant swelling of the left knee and arthrocentesis was done. The patient was admitted to the hospital for subsequent management and care. PAST MEDICAL HISTORY: Notable for Parkinson disease and osteoarthritis. ALLERGIES: To penicillin and sulfa. HOME MEDICATIONS: Reviewed and reconciled in the chart and include currently only Lovenox and Levaquin. REVIEW OF SYSTEMS: Denies any headaches, hematemesis, melena, or hematochezia. PHYSICAL EXAMINATION: GENERAL: Reveals an elderly female. HEENT: Unremarkable. LUNGS: Clear breath sounds bilaterally. ABDOMEN: Soft. EXTREMITIES: The left lower extremity has 1+ edema. The left knee is swollen. NEUROLOGIC: The patient has a 3 to 5 hertz tremor of both upper extremities. She has very poor speech. LABORATORY DATA: Lab testing shows white count hemoglobin 10. Platelet count is normal. Chemistries are normal. Troponins are negative. Coags are negative. Urinalysis shows pyuria. Arthrocentesis was done, which shows nucleated red cells. IMPRESSION: 1. 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 2. UTI. 3. Parkinson. 4. DVT. DISCUSSION: 1. Admit to the hospital. 2. Continue Levaquin. Continue Lovenox. 3. We will consult orthopedics. 4. We will consult ID. 5. We will request physical therapy. 6. We will follow carefully. Anastacio Sloan M.D. DR: JENNY JOB#: [id number] CC:
--- NOTE | 2018-11-03 19:50 | NUR ---
OBTAINED REPORT FROM FLORIAN RN, PT RESTING IN BED.
--- NOTE | 2018-11-03 19:56 | NUR ---
NURSE NOTES:WOUND CARE NOTES:Pt presented on admission with multiple pressure injuries. L lower ext edematous. DTPI noted to sacrum. Base of wound maroon indurated with surrounding dark brown discoloration. Pt verbalized pain when affected area minimally palpated.(L)1.5cm x (W)1cm. Unstageable pressure injury R buttocks (L)2.5cm x (W)3cm. Base of wound has 100% slough with erythematous borders.(L)2.5cm x (W)3cm. Non-blanchable erythema periwound. #2 Serous blisters in close proximity noted to L hallux with surrounding non-blanching erythema.(L)1.7cm x (W)1cm. Both heels are boggy with non-blanching erythema. Tx.Plan:Cleanse Wound R buttocks with Saline. Apply Therahoney. Apply Moisture Barrier Paste periwound. Cover with Optifoam drsg. Change every 3 days and prn. Apply Moisture Barrier Paste to Sacrum. Cover with Optifoam drsg. Change every 3 days and prn. Apply Cavilon Skin Barrier to L hallux. cover with Optifoam drsg. Change every 7 days and prn. Apply Cavilon Skin Barrier to both heels. Cover each heel with Optifoam drsg. Change every 7 days and prn. APM/IVAN mattress overlay. Elevate L lower ext. with pillow. Reposition at least every 2hours or as tolerated. Off-load heels with pillow.
--- NOTE | 2018-11-03 19:58 | NUR ---
HAND-OFF: Report given to MARITZA Giordano. Plan of care endorsed. .
[2018-11-03 20:00] VITALS: BP 122/60
[2018-11-03] MEDS: Enoxaparin Sodium 300mg/3ml vial SUBQ SCH (21:41)
--- NOTE | 2018-11-04 00:15 | Progress Note ---
DATE: 11/03/2018 CARDIOLOGY PROGRESS NOTE SUBJECTIVE: The patient was seen in Orthopedic consultation today and it was felt that nonsurgical management would be recommended at this time. The patient remains on full anticoagulation for acute DVT of her left popliteal vein. The patient's blood pressure parameters are slowly improving since admission and tachycardia is less frequent. OBJECTIVE: VITAL SIGNS: Blood pressure 135/54 to 149/65, heart rate 85 to 99, respiratory rate 18 to 20, afebrile. HEENT: Conjunctivae pink. Oropharynx clear. NECK: Supple. LUNGS: Clear. CARDIAC: Regular. Normal S1, S2 with no murmur or heaves. ABDOMEN: Soft and obese. Tremor is noted. EXTREMITIES: 1+ left lower extremity edema, swelling of the knee, and erythema of toe. LABORATORY DATA: Troponins remained negative. Potassium 3.6, BUN 23, creatinine 0.6. White count 14, hemoglobin 9.1. IMPRESSION: 1. Cellulitis, left toe and knee. 2. Severe osteoarthritis. 3. Acute DVT. 4. Secondary sinus tachycardia. 5. No clinical signs of pulmonary embolic event. 6. Macrocytic anemia. PLAN: 1. Antimicrobials. 2. Antiinflammatory agents. 3. Full anticoagulation. 4. Check B12, folate levels. 5. Continue cardiac monitoring for now. Ramy Franks M.D. DR: TAB JOB#: [id number] CC:
[2018-11-04 01:00] VITALS: BP 141/90
[2018-11-04] MEDS: Levofloxacin 250mg/D5W 50ml IVPB SCH (01:15)
[2018-11-04 04:00] VITALS: BP 143/70
[2018-11-04 04:35] LABS: BASOPHILS % (AUTO) 0.8 % (0.0-2.0); EOSINOPHILS % (AUTO) 1.4 % (0.0-3.0); HEMATOCRIT 25.9 % (37.0-47.0); HEMOGLOBIN 8.3 G/DL (12.0-16.0); LYMPHOCYTES % (AUTO) 18.9 % (20.0-45.0); MEAN CORPUSCULAR VOLUME 96 FL (80-99); MONOCYTES % (AUTO) 9.9 % (1.0-10.0); NEUTROPHILS % (AUTO) 68.9 % (45.0-75.0); PLATELET COUNT 428 K/UL (150-450); RED BLOOD COUNT 2.71 M/UL (4.20-5.40); WHITE BLOOD COUNT 14.6 K/UL (4.8-10.8)
[2018-11-04 04:48] LABS: ANION GAP 9 mmol/L (5-15); BLOOD UREA NITROGEN 20 mg/dL (7-18); CALCIUM 8.9 MG/DL (8.5-10.1); CARBON DIOXIDE 25 MMOL/L (21-32); CHLORIDE 110 MMOL/L (98-107); CREATININE 0.7 MG/DL (0.55-1.30); POTASSIUM 3.8 MMOL/L (3.5-5.1); SODIUM 143 MMOL/L (136-145)
--- NOTE | 2018-11-04 07:10 | NUR ---
GAVE FULL REPORT TO COLTON SALAS, PT RESTING IN BED.
--- NOTE | 2018-11-04 07:45 | NUR ---
NURSE NOTES: Received report from MARITZA Sheppard. Patient in bed resting, no active s/s cardiac, respiratory distress noticed at this time. Patient AOx3-4, SR with HR 80. Family member at the bedside. Piña Catheter draining well to gravity. IV on left FA 20G, asymptomatic, patent, intact. Bed in lowest position, side rails upx3, call light within reach. Will continue to monitor.
[2018-11-04 08:00] VITALS: BP 145/56
--- NOTE | 2018-11-04 08:47 | Pulmonology Progress Note ---
Assessment/Plan Assessment/Plan IMPRESSION: 1. 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 2. UTI. 3. Parkinson. 4. DVT. DISCUSSION: 1. Improving slowly with improved leucocytosis 2. Continue Levaquin. Continue Lovenox. 3. Seen by orthopedics, ID and physical therapy. 4. DC planning for home in AM 5. Appreciate cardiac eval Subjective Interval Events: No fever. WBC better Constitutional: Reports: no symptoms HEENT: Repors: no symptoms Respiratory: Reports: no symptoms Cardiovascular: Reports: no symptoms Gastrointestinal/Abdominal: Reports: no symptoms Allergies: Coded Allergies: PENICILLINS (Unverified Allergy, Unknown, 11/02/18) SULFA (SULFONAMIDE ANTIBIOTICS) (Unverified Allergy, Unknown, 11/02/18) Uncoded Allergies: PENICILLIN (Allergy, Unknown, 11/02/18) SULFA (Allergy, Unknown, 11/02/18) Objective Last 24 Hour Vital Signs Date Time Temp Pulse Resp B/P (MAP) Pulse Ox O2 Delivery O2 Flow Rate FiO2 11/04/18 04:00 98.9 80 18 143/70 (94) 97 11/04/18 04:00 73 11/04/18 01:00 99.0 79 18 141/90 (107) 97 11/04/18 00:00 80 11/03/18 20:00 98.5 80 18 122/60 (80) 11/03/18 20:00 80 11/03/18 20:00 Room Air 11/03/18 19:00 85 11/03/18 16:00 98.2 87 18 139/55 (83) 97 11/03/18 12:00 91 11/03/18 12:00 98.8 90 20 135/54 (81) 97 11/03/18 09:00 Room Air Intake and Output 11/03/18 11/04/18 19:00 07:00 Intake Total 360 ml Output Total 350 ml Balance 10 ml Intake Oral 360 ml Output Urine Total 350 ml # Voids 2 General Appearance: no acute distress HEENT: normocephalic Respiratory/Chest: chest wall non-tender, lungs clear Cardiovascular: normal peripheral pulses, no gallop/murmur Microbiology Date/Time Source Procedure Growth Status 11/02/18 16:25 Blood Blood Culture - Preliminary NO GROWTH AFTER 24 HOURS Resulted 11/02/18 16:25 Blood Blood Culture - Preliminary NO GROWTH AFTER 24 HOURS Resulted 11/02/18 18:59 Urine,Clean Catch Urine Culture - Preliminary Resulted Laboratory Tests 11/04/18 04:26: White Blood Count 14.6H, Red Blood Count 2.71L, Hemoglobin 8.3L, Hematocrit 25.9L, Mean Corpuscular Volume 96, Mean Corpuscular Hemoglobin 30.5, Mean Corpuscular Hemoglobin Concent 31.9L, Red Cell Distribution Width 12.0, Platelet Count 428, Mean Platelet Volume 5.6L, Neutrophils (%) (Auto) 68.9, Lymphocytes (%) (Auto) 18.9L, Monocytes (%) (Auto) 9.9, Eosinophils (%) (Auto) 1.4, Basophils (%) (Auto) 0.8, Sodium Level 143, Potassium Level 3.8, Chloride Level 110H, Carbon Dioxide Level 25, Anion Gap 9, Blood Urea Nitrogen 20H, Creatinine 0.7, Estimat Glomerular Filtration Rate , Glucose Level 111H, Calcium Level 8.9, Vitamin B12 Level > 2000H, Folate 19.5, Random Amikacin Level 9.8 Current Medications Medications (Trade) Dose Ordered Sig/Preston Route PRN Reason Start Time Stop Time Status Last Admin Dose Admin Acetaminophen (Tylenol) 650 mg Q6H PRN ORAL Mild Pain/Temp > 100.5 11/02/18 22:30 12/02/18 22:29 11/04/18 01:16 Amikacin Protocol (Amikacin pharmacy to dose) 1 ea DAILY PRN MISC Per rx protocol 11/03/18 12:30 12/03/18 12:29 Amikacin Sulfate 200 mg/Dextrose 55.8 ml @ 110 mls/hr Q72H IV 11/04/18 18:00 11/11/18 17:59 Enoxaparin Sodium (Lovenox) 50 mg Q12HR SUBQ 11/03/18 21:00 12/03/18 20:59 11/03/18 21:41 Levofloxacin 50 ml @ 50 mls/hr Q24H IVPB 11/04/18 00:30 11/11/18 00:29 11/04/18 01:15 Vancomycin HCl (Vanco rx to dose) 1 ea DAILY PRN MISC Per rx protocol 11/03/18 12:30 12/03/18 12:29 Vancomycin HCl 500 mg/Dextrose 110 ml @ 110 mls/hr Q24H IVPB 11/03/18 15:00 11/08/18 14:59 11/03/18 14:13 Anastacio Sloan MD Nov 04, 2018 08:47
[2018-11-04] MEDS: Enoxaparin Sodium 300mg/3ml vial SUBQ SCH ×3 (08:59→20:59)
[2018-11-04 12:00] VITALS: BP 109/55
--- NOTE | 2018-11-04 13:23 | NUR ---
*-* INSURANCE *-* UPDATED CLINICALS HAVE BEEN FAXED TO: ANDRADE KOVACS [facility]#[id number] STUDENT FINANCE ADVISOR: QUINN PH#[phone] FAX#[phone] REVIEWS/CLINICALS
--- NOTE | 2018-11-04 14:36 | Surgery Progress Note ---
Surgery Progress Note Subjective Additional Comments no acute events comfortable stable exam stable more awake and responsive today no complaints states she is doing well Objective Last 24 Hour Vital Signs Date Time Temp Pulse Resp B/P (MAP) Pulse Ox O2 Delivery O2 Flow Rate FiO2 11/04/18 12:00 97.7 84 18 109/55 (73) 97 11/04/18 12:00 76 11/04/18 09:00 Room Air 11/04/18 08:00 77 11/04/18 08:00 98.3 75 18 145/56 (85) 98 11/04/18 04:00 98.9 80 18 143/70 (94) 97 11/04/18 04:00 73 11/04/18 01:00 99.0 79 18 141/90 (107) 97 11/04/18 00:00 80 11/03/18 20:00 98.5 80 18 122/60 (80) 11/03/18 20:00 80 11/03/18 20:00 Room Air 11/03/18 19:00 85 11/03/18 16:00 98.2 87 18 139/55 (83) 97 I&O Intake and Output 11/03/18 11/04/18 18:59 06:59 Intake Total 360 ml Output Total 350 ml Balance 10 ml Intake Oral 360 ml Output Urine Total 350 ml # Voids 2 Dressing: saturated Wound: clean Cardiovascular: RSR Respiratory: clear Abdomen: soft, non-tender, present bowel sounds Extremities: no cyanosis, other Laboratory Tests Test 11/04/18 04:26 White Blood Count 14.6 K/UL (4.8-10.8) H Red Blood Count 2.71 M/UL (4.20-5.40) L Hemoglobin 8.3 G/DL (12.0-16.0) L Hematocrit 25.9 % (37.0-47.0) L Mean Corpuscular Volume 96 FL (80-99) Mean Corpuscular Hemoglobin 30.5 PG (27.0-31.0) Mean Corpuscular Hemoglobin Concent 31.9 G/DL (32.0-36.0) L Red Cell Distribution Width 12.0 % (11.6-14.8) Platelet Count 428 K/UL (150-450) Mean Platelet Volume 5.6 FL (6.5-10.1) L Neutrophils (%) (Auto) 68.9 % (45.0-75.0) Lymphocytes (%) (Auto) 18.9 % (20.0-45.0) L Monocytes (%) (Auto) 9.9 % (1.0-10.0) Eosinophils (%) (Auto) 1.4 % (0.0-3.0) Basophils (%) (Auto) 0.8 % (0.0-2.0) Sodium Level 143 MMOL/L (136-145) Potassium Level 3.8 MMOL/L (3.5-5.1) Chloride Level 110 MMOL/L (98-107) H Carbon Dioxide Level 25 MMOL/L (21-32) Anion Gap 9 mmol/L (5-15) Blood Urea Nitrogen 20 mg/dL (7-18) H Creatinine 0.7 MG/DL (0.55-1.30) Estimat Glomerular Filtration Rate mL/min (>60) Glucose Level 111 MG/DL (74-106) H Calcium Level 8.9 MG/DL (8.5-10.1) Vitamin B12 Level > 2000 PG/ML (193-986) H Folate 19.5 NG/ML (8.6-58.9) Random Amikacin Level 9.8 ug/mL Plan Problems: (1) Cellulitis of left foot Assessment & Plan: Pt presented on admission with multiple pressure injuries. L lower ext edematous. DTPI noted to sacrum. Base of wound maroon indurated with surrounding dark brown discoloration. Pt verbalized pain when affected area minimally palpated.(L )1.5cm x (W)1cm. Unstageable pressure injury R buttocks (L)2.5cm x (W)3cm. Base of wound has 100 % slough with erythematous borders.(L)2.5cm x (W)3cm. Non-blanchable erythema periwound. #2 Serous blisters in close proximity noted to L hallux with surrounding non- blanching erythema.(L)1.7cm x (W)1cm. Both heels are boggy with non-blanching erythema. Tx.Plan: Cleanse Wound R buttocks with Saline. Apply Therahoney. Apply Moisture Barrier Paste periwound. Cover with Optifoam drsg. Change every 3 days and prn. Apply Moisture Barrier Paste to Sacrum. Cover with Optifoam drsg. Change every 3 days and prn. Apply Cavilon Skin Barrier to L hallux. cover with Optifoam drsg. Change every 7 days and prn. Apply Cavilon Skin Barrier to both heels. Cover each heel with Optifoam drsg. Change every 7 days and prn. APM/IVAN mattress overlay. Elevate L lower ext. with pillow. Reposition at least every 2hours or as tolerated. Off-load heels with pillow.Leukocytosis elevated ESR abnormal labs afebrile, HD stable does also have UTI will monitor and follow with recs thank you IV abx as per ID Tx UTI (2) Knee pain Assessment & Plan: Findings: There is a suprapatellar effusion. There is severe degenerative narrowing of the lateral joint compartment, with obliteration of the joint space, subchondral sclerosis, and marked degenerative remodeling of the articular surfaces. No acute fractures. No dislocations. Impression: Evidence of joint effusion Severe lateral compartmental degenerative changes, as described No acute bony trauma no acute intervention planned outpatient ortho f/u and re-evaluation for possible aspiration Jake Claire Nov 04, 2018 14:36
--- NOTE | 2018-11-04 15:11 | NUR ---
P.T NOTE: P.T CONSULT RECEIVED. OK TO PROCEED WITH EVALUATION AND MOBILIZATION. P.T COMPLETED AND TREATMENT INITIATED WITH DAUGHTER PRESENT AND INVOLVED. PATIENT IS AWAKE, ALERT, ORIENTED TO SELF AND PLACE BUT NOT TO TIME. .PATIENT PRESENTED WITH GENERALIZED WEAKNESS AND DECONDITIONING AND PAIN ON THE L KNEE AGGRAVATED BY MOVEMENT INITIATION. PATIENT CURRENTLY REQUIRED MAX A X 1 AND EXTENDED TIME TO INITIATE AND COMPLETE FULL TURN TO R/L SIDE OF THE USING BED RAIL AND COMPLETE SUPINE TO/FROM SITTING. PATIENT ABLE TO SIT AT THE EOB WITH BUE SUPPORT HOLDING ON TO THE BED RAIL. PATIENT IS TOO WEAK TO STAND AND TRANSFER. SKILLED P.T SERVICE IS WARRANTED TO IMPROVE HER STRENGTH, BALANCE AN D ACTIVITY TOLERANCE TO INCREASE HER MOBILITY INDEPENDENCE. RECOMMEND SNF FOR SHORT TERM REHAB VS HOME WITH P.T. THANK YOU FOR THIS REFERRAL.
[2018-11-04] MEDS: Vancomycin 500mg/D5W 110ml IVPB SCH ×2 (15:12)
[2018-11-04 16:00] VITALS: BP 141/54
--- NOTE | 2018-11-04 16:35 | NUR ---
CASE MANAGEMENT:REVIEW 11/04/18 SI: DVT. LT FOOT CELLULITIS 97.7 84 18 109/55 97% ON RA WBC+14.6 H/H-8.3/25.9 IS: IV AMIKACIN Q24 `IV LEVAQUIN Q24 IV VANCOMYCIN Q24 LOVENOX SQ Q12 : TELEMETRY STATUS
--- NOTE | 2018-11-04 16:41 | Infectious Diseases Prog Note ---
Assessment/Plan Assessment/Plan Full consult dictated: A) 1) gram neg uti/pyelonephritis, sepsis, leukocytosis, fevers 2) left foot cellulitis 3) dvt 4) pmh noted 5) allergies - pcn, sulfa P) 1) amikacin and levofloxacin, vancomycin 2) check cultures, surgery evaluation left foot noted 3) monitor labs 4) d/w family Subjective Allergies: Coded Allergies: PENICILLINS (Unverified Allergy, Unknown, 11/02/18) SULFA (SULFONAMIDE ANTIBIOTICS) (Unverified Allergy, Unknown, 11/02/18) Uncoded Allergies: PENICILLIN (Allergy, Unknown, 11/02/18) SULFA (Allergy, Unknown, 11/02/18) Objective Vital Signs Last 24 Hour Vital Signs Date Time Temp Pulse Resp B/P (MAP) Pulse Ox O2 Delivery O2 Flow Rate FiO2 11/04/18 12:00 97.7 84 18 109/55 (73) 97 11/04/18 12:00 76 11/04/18 09:00 Room Air 11/04/18 08:00 77 11/04/18 08:00 98.3 75 18 145/56 (85) 98 11/04/18 04:00 98.9 80 18 143/70 (94) 97 11/04/18 04:00 73 11/04/18 01:00 99.0 79 18 141/90 (107) 97 11/04/18 00:00 80 11/03/18 20:00 98.5 80 18 122/60 (80) 11/03/18 20:00 80 11/03/18 20:00 Room Air 11/03/18 19:00 85 Height (Feet): 5 Height (Inches): 4.00 Weight (Pounds): 110 Microbiology Date/Time Source Procedure Growth Status 11/02/18 16:25 Blood Blood Culture - Preliminary NO GROWTH AFTER 24 HOURS Resulted 11/02/18 16:25 Blood Blood Culture - Preliminary NO GROWTH AFTER 24 HOURS Resulted 11/02/18 18:59 Urine,Clean Catch Urine Culture - Preliminary Gram Negative Bacillus 1 Resulted Laboratory Tests Test 11/04/18 04:26 White Blood Count 14.6 K/UL (4.8-10.8) H Red Blood Count 2.71 M/UL (4.20-5.40) L Hemoglobin 8.3 G/DL (12.0-16.0) L Hematocrit 25.9 % (37.0-47.0) L Mean Corpuscular Volume 96 FL (80-99) Mean Corpuscular Hemoglobin 30.5 PG (27.0-31.0) Mean Corpuscular Hemoglobin Concent 31.9 G/DL (32.0-36.0) L Red Cell Distribution Width 12.0 % (11.6-14.8) Platelet Count 428 K/UL (150-450) Mean Platelet Volume 5.6 FL (6.5-10.1) L Neutrophils (%) (Auto) 68.9 % (45.0-75.0) Lymphocytes (%) (Auto) 18.9 % (20.0-45.0) L Monocytes (%) (Auto) 9.9 % (1.0-10.0) Eosinophils (%) (Auto) 1.4 % (0.0-3.0) Basophils (%) (Auto) 0.8 % (0.0-2.0) Sodium Level 143 MMOL/L (136-145) Potassium Level 3.8 MMOL/L (3.5-5.1) Chloride Level 110 MMOL/L (98-107) H Carbon Dioxide Level 25 MMOL/L (21-32) Anion Gap 9 mmol/L (5-15) Blood Urea Nitrogen 20 mg/dL (7-18) H Creatinine 0.7 MG/DL (0.55-1.30) Estimat Glomerular Filtration Rate mL/min (>60) Glucose Level 111 MG/DL (74-106) H Calcium Level 8.9 MG/DL (8.5-10.1) Vitamin B12 Level > 2000 PG/ML (193-986) H Folate 19.5 NG/ML (8.6-58.9) Random Amikacin Level 9.8 ug/mL Current Medications Medications (Trade) Dose Ordered Sig/Preston Route PRN Reason Start Time Stop Time Status Last Admin Dose Admin Acetaminophen (Tylenol) 650 mg Q6H PRN ORAL Mild Pain/Temp > 100.5 11/02/18 22:30 12/02/18 22:29 11/04/18 01:16 Amikacin Protocol (Amikacin pharmacy to dose) 1 ea DAILY PRN MISC Per rx protocol 11/03/18 12:30 12/03/18 12:29 Amikacin Sulfate 300 mg/Dextrose 56.2 ml @ 110.8 mls/ hr Q24H IV 11/04/18 21:00 11/11/18 20:59 Enoxaparin Sodium (Lovenox) 50 mg Q12HR SUBQ 11/03/18 21:00 12/03/18 20:59 11/04/18 08:59 Levofloxacin 50 ml @ 50 mls/hr Q24H IVPB 11/04/18 00:30 11/11/18 00:29 11/04/18 01:15 Vancomycin HCl (Vanco rx to dose) 1 ea DAILY PRN MISC Per rx protocol 11/03/18 12:30 12/03/18 12:29 Vancomycin HCl 500 mg/Dextrose 110 ml @ 110 mls/hr Q24H IVPB 11/03/18 15:00 11/08/18 14:59 11/04/18 15:12 Florina Young MD Nov 04, 2018 16:41
[2018-11-04] MEDS ORDERED: AMIKACIN IV SCH ×2 (18:00→21:00)
[2018-11-04] MEDS ORDERED: D5W IV SCH ×2 (18:00→21:00)
--- NOTE | 2018-11-04 18:15 | Consultation ---
DATE OF CONSULTATION: 11/04/2018 INFECTIOUS DISEASE CONSULTATION CONSULTING PHYSICIAN: Florina Young M.D. ATTENDING PHYSICIAN: Anastacio Sloan M.D. REFERRING PHYSICIAN: Anastacio Sloan M.D. REASON FOR CONSULTATION: Gram-negative UTI, pyelonephritis, sepsis, fevers, leukocytosis, and left foot cellulitis. CHIEF COMPLAINT: The patient's chief complaint coming in to the hospital is DVT. HISTORY OF PRESENT ILLNESS: This is an 88-year-old female, who comes in to [facility] with DVT. She also has left foot cellulitis and also looks like a gram-negative UTI, pyelonephritis with sepsis, fevers, leukocytosis, and complicated UTI. Infectious Disease consultation is requested. The patient is not a very good historian. Case was discussed with RN and the patient's family. The patient was started on amikacin, Levaquin, and vancomycin. She is allergic to penicillin. Urine culture with gram-negative organisms. Followup blood cultures are negative. The patient's left foot was seen by surgery and no acute surgical intervention, just treat for cellulitis. REVIEW OF SYSTEMS: CONSTITUTIONAL: The patient does have a Piña. She has no central line. She is more alert today. She did have generalized weakness and fatigue. HEAD AND NECK: No head pain or neck pain. CARDIAC: No chest pain. GASTROINTESTINAL: No nausea, vomiting, or diarrhea. GENITOURINARY: She has a Piña. PULMONARY: No congestion or shortness of breath. SKIN: No rash. EXTREMITIES: She has DVT in the left foot and pain. NEUROLOGIC: No seizures. PAST MEDICAL HISTORY: The patient's past medical history includes the history of the following: The patient has a past medical history of left knee osteoarthritis and was seen by Orthopedic surgery. She has history of Parkinson disease, DVT, and osteoarthritis. I believe she does have a history of UTI also in the past, but I am not 100% clear. She has history of left knee pain. MEDICATIONS: Upon reviewing the MAR, she is on the following medications. She is on amikacin, Levaquin, enoxaparin, vancomycin, and acetaminophen. Outside medications were noted and reconciliated. ALLERGIES: Include penicillin and sulfa drugs. SOCIAL HISTORY: Negative for smoking, alcohol, or drug abuse. FAMILY HISTORY: Noncontributory. PHYSICAL EXAMINATION: VITAL SIGNS: On admission, temperature 100.8. Currently, temp 97.7, pulse 84, respirations 18, blood pressure 109/55, and saturation 97%. Pulse rate has been as high as 99. Respiratory rate has been as high as 28 on admission. GENERAL: Alert, responsive, and more alert today. No acute distress. HEAD AND NECK: Oral exam, no thrush. Eye exam, no icterus. Neck is supple. No JVD. Normocephalic. LUNGS: Clear bilaterally. No rhonchi or rales. HEART: Regular. No gallop or murmur. ABDOMEN: Soft. Positive bowel sounds. Nontender. SKIN: No rash. MUSCULOSKELETAL: Legs are without cellulitis. She does have a left knee effusion. PERIPHERAL VASCULAR: She has left foot cellulitis. GENITOURINARY: She has a Piña. Urine is slightly cloudy. PERIPHERAL VASCULAR: No gangrene. LINE SITES: Without phlebitis. NEUROLOGIC: Generalized weakness and responsive. CULTURES: Blood cultures are negative to date. Urine culture greater than 100,000 gram-negative bacilli. Identification is pending. LABORATORY DATA: Laboratory data is as follows: White count 14.6 and hemoglobin 8.3. Creatinine 0.7. White count on admission 17.5. IMAGING: Chest x-ray shows no acute process. ASSESSMENT AND PLAN: 1. The patient has gram-negative UTI and pyelonephritis with sepsis, elevated white count, fevers, elevated respiratory rate and heart rate consistent with SIRS criteria. White count 17.5 on admission. Again, complicated UTI secondary to gram-negative UTI and pyelonephritis. She also has left foot cellulitis. At this time, we will continue vancomycin, Levaquin, and amikacin for Staph aureus and Streptococcus pyogenes for gram-negative coverage. Continue vancomycin, Levaquin, and amikacin to treat gram-negative UTI, pyelonephritis, sepsis, and left foot cellulitis. Monitor leukocytosis and fevers. Surgery saw the patient and no further intervention of the left foot, just treat for the cellulitis at this time. Check final urine culture. Case discussed with the patient's family at the bedside. 2. Left knee osteoarthritis. The patient was seen by Surgery. 3. The patient has anemia. 4. Osteoarthritis history. 5. Parkinson's. 6. Poor historian. 7. No history of diabetes, hypertension, or heart disease. 8. Allergies to penicillin and sulfa. 9. Social history is negative. 10. Family history is noncontributory. 11. MAR was noted. 12. Case was discussed with RN. 13. Continue treatment per primary consultants. 14. Skin care protocol. Florina Young M.D. DR: SAIMA JOB#: [id number] CC:
--- NOTE | 2018-11-04 19:29 | NUR ---
HAND-OFF: Report given to MARITZA Resendiz.
--- NOTE | 2018-11-04 19:30 | NUR ---
NURSE NOTES: Got report from Shaun SALAS. Pt in stable condition. Denies any pain. No s/s of distress or discomfort noted. Pt resting in bed comfortably. Bed in low and locked position, call light within reach, bedside table within reach. Continue to monitor.
--- NOTE | 2018-11-04 19:58 | Consultation ---
Consult Note Consult Note NEUROLOGY CONSULTATION: Full note dictated #[id number] 88-year-old, right-handed, black lady, who does have a past history of osteoarthritis, and an undefined tremor. She has had a tremor for the last 4 years or so but no definite diagnosis has been made with regards to her tremor. In addition no medicines have been tried. As per her daughter she has been having increasing problems with walking since late 2018 as a result of which she has to stay on one floor only varies in the past she would go upstairs to bed. She also has been noted to bend to her left side for the last few months. Her movements have become increasingly slower. Her memory has also deteriorated. She was hospitalized for swelling of her left knee and left leg. She was discovered to have deep venous thrombosis, UTI, and an arthritic swollen left knee ON EXAM: Oriented to self only Memory: 3/3-0, 2/3-1 & 3 Unable to remember presidents Unable to do simple mathematics Unable to do simple visual-spatial problems Speech mildly dysarthric Language anomic Cranial nerves with left seventh central facial paresis Tone increased in all 4 extremities with combination of cogwheel rigidity and gegenhalten. Generalized muscle wasting G 5/5 power except for G4/5 in left finger extensors, G 3/5 in left iliopsoas, impossible to test at left knee because of pain. G 4+/5 in right iliopsoas Sensory intact to light touch and pinprick Reflexes: 2+ on the right and 2++ on the left at the biceps triceps and brachioradialis. 2+ on the right and 1+ on the left at the knees. 0 at both ankles. Plantar responses flexor. Coordination: [id number] slow bilaterally unable to do [id number]. 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 Patient does have a parkinsonian syndrome. Patient does have a left hemiparesis which may be related to intracranial pathology. Patient does have significant cognitive problems. The left leg pain and discomfort are due to an arthritic left knee and deep venous thrombosis in the leg. RECOMMENDATIONS: Aggressive treatment of infectious process Treatment of DVT Trial of Sinemet 25/100 to be given at 7 AM and 12 noon MRI of brain to evaluate for left hemiparesis and cognitive dysfunction. Work-up for treatable causes of cognitive decline Carotid duplex to evaluate for cerebrovascular disease Mobilize with help of PT and OT Observe Nawaf Hooper M.D., M.S.P.H. Nawaf Hooper MD Nov 04, 2018 19:58
[2018-11-04 20:00] VITALS: BP 146/71
--- NOTE | 2018-11-04 22:15 | Consultation ---
DATE OF CONSULTATION: 11/04/2018 NEUROLOGY CONSULTATION CONSULTING PHYSICIAN: Nawaf Hooper M.D. REQUESTING PHYSICIAN: Anastacio Sloan M.D. HISTORY: Ms. Cadence Wells is an 88-year-old, right-handed, black lady, who does have a past history of osteoarthritis and an undefined tremor. She has had a tremor for the last four years or so, but no definite diagnosis has been made with regards to the tremor. In addition, no medicines have been tried. As per her daughter, she has been having increasing problems with walking since late 2017. They live in a two-level home and in the past, the patient used to go up stairs to go to bed. However since late 2018, she has lost ability to climb up the stairs and she only lives on 1 level. Her daughter has also noticed that for the last few months when she sits, she bends to her left side. In addition, her movements have become increasingly slower, her memory has deteriorated, and there has been a general deterioration in her condition. She was brought to the [facility] emergency room, for a week of generalized worsening of her condition, swelling of her left knee and left leg. She was discovered to have deep venous thrombosis and an arthritic swollen left knee and urinary tract infection. She has been treated for all these problems and there has been a minimal improvement in her condition. This consultation was requested by Dr. Slaon to evaluate and manage the patient's tremor and altered mental state. The patient is unable to give me any further history. PAST MEDICAL HISTORY: Significant for osteoarthritis involving multiple joints and an undefined tremor. FAMILY HISTORY: Nothing significant with no family history of neurological illness. PERSONAL HISTORY: Home: She lives at home with her daughter. 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 Habits: There is no history of illicit drug use. She would have cigarettes once in a while. She also would have a rare alcoholic drink. MEDICATIONS: Present medications include amikacin, levofloxacin, Lovenox, vancomycin, and Tylenol. PHYSICAL EXAMINATION: GENERAL: She is a well-developed, but lean black lady, lying in bed, in no acute distress. VITAL SIGNS: Pulse 83/minute, blood pressure 141/54 mmHg, respirations 20/minute, and temperature 97.4 degrees Fahrenheit. HEAD: Normocephalic and atraumatic. EENT: Examination benign. NECK: No neck rigidity was observed. NEUROLOGICAL EXAMINATION: MENTAL STATUS EXAMINATION: She was awake and alert. She was oriented to self only. She had no idea where she was or what the date was. She was able to recall 3/3 words immediately, but could only remember 2/3 words in 1 minute and 3 minutes even on the third trial. She was unable to tell me who the present President was and who prior presidents were. Her mathematical skills were impaired. Her visuospatial function was also impaired. SPEECH: She had a mild dysarthria. LANGUAGE: She had anomic aphasia. CRANIAL NERVE EXAMINATION: II: The visual goel were intact on confrontation testing. III, IV & : The external ocular movements were full and the pupils 3 mm in diameter, equal, round, regular, and reactive sluggishly to light. V: She had normal facial sensations, and the temporales, masseters, and pterygoids functioned normally. VII: She had a left seventh central facial paresis. VIII: She was able to hear and had no nystagmus. IX: The palate moved symmetrically on phonation. X: She had no hoarseness of voice. XI: The sternocleidomastoids and trapezii functioned normally. XII: The tongue was in the midline without any fasciculations or atrophy. MOTOR SYSTEM: The tone was increased in all four extremities with a combination of cogwheel rigidity and gegenhalten. Examination of muscle mass revealed generalized muscle wasting. Examination of power revealed G 5/5 power, except for G 4/5 power in the left finger extensors, and G 3/5 power in the left iliopsoas. It was impossible to test the left knee because of pain. She also had G 4+/5 power in the right iliopsoas. SENSORY EXAMINATION: She had intact sensations to pinprick and light touch. COORDINATION: She performed jvonfu-ak-pbiu testing slowly bilaterally with a touch of apraxia. She was unable to perform tnso-qe-zynv testing. REFLEXES: 2+ on the right and 2++ on the left, at the biceps, triceps, and brachioradialis; 2+ on the right and 1+ on the left at the knees, 0 at both ankles. The plantar responses were flexor bilaterally. STANCE & GAIT: Could not be tested. ABNORMAL MOVEMENTS: Tremor (7 to 8 hertz): G 2/4. Tremor (4 to 5 hertz): G 2/4. Rigidity: G 2/4. Bradykinesia: G 2/4. Hypomimia: G 2/4. Hypophonia: G 2/4. DIAGNOSTIC IMPRESSION: 1. Ms. Cadence Wells is an 88-year-old, right-handed, black lady, with a past history of osteoarthritis and an undefined kind of tremor, which she has had for the last four years or so. Since late 2018, the patient has had problems with walking and lost her ability to climb stairs. For the last few months, she has also been bending to her left side. Her movements have become increasingly slower and her memory has deteriorated. She was hospitalized for a few day history of left knee and leg swelling and on being hospitalized, she was found to have deep venous thrombosis, a urinary tract infection, and an arthritic swollen left knee. 2. On neurological examination, at this time, she is disoriented to place and time. She has significant problems with recent and remote memory, visuospatial function, higher cognitive function, and language. 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 3. Laboratory tests performed thus far have revealed that she had a leukocytosis with a WBC count, which was as high as 17,500. She was significantly anemic with a hemoglobin of 8.3 G. The chemistry panel revealed a BUN that was elevated at 32, glucose that was elevated at 134, an albumin that was low at 2.4, a normal B12 level, and a normal folate. The Urinalysis revealed 3+ leukocyte esterase, 20-30 red blood cells, and 40-60 white blood cells per high-power field. 4. 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 5. 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 6. She also has a left hemiparesis which may be related to an intracranial lesion. 7. In addition she has significant cognitive problems, which may be indicative of a primary degenerative process versus acute intracranial pathology with a superimposed encephalopathy. RECOMMENDATIONS: 1. Agree with management thus far. 2. Aggressive treatment of infectious process. 3. Aggressive treatment of DVT. 4. The patient will be given a trial of Sinemet 25/100, to be taken at 7 a.m. and 12 noon. 5. An MRI of the brain should be performed to evaluate the patient for her left hemiparesis and cognitive dysfunction. 6. The patient should be worked up thoroughly for other treatable causes of cognitive decline and cerebrovascular disease. 7. A Carotid duplex should be performed to evaluate the patient for her left hemiparesis and cerebrovascular disease. 8. The patient should be mobilized with the help of physical and occupational therapy. 9. The patient will be observed closely and depending on how she fares over the next day or so, further recommendations will be given. Thank you for entrusting me with the care of Ms. Wells. I shall follow her with you. Nawaf Hooper M.D., M.S.P.H. DR: DOC JOB#: [id number] CHRISTOPHER
--- NOTE | 2018-11-04 23:15 | Progress Note ---
DATE: 11/04/2018 CARDIOLOGY PROGRESS NOTE SUBJECTIVE: The patient remains on full anticoagulation for management of an acute DVT. She was seen in neurologic consultation. She continues on antimicrobial therapy. OBJECTIVE: VITAL SIGNS: Blood pressure 109/55 to 141/54, heart rate 82, respiratory rate 20, and afebrile. Monitored rhythm, sinus. LUNGS: Clear. CARDIAC: Regular. Normal S1, S2 with a fourth heart sound. ABDOMEN: Soft. EXTREMITIES: Left hemiparesis. Knee with effusion. Left toe and foot with scant erythema and drainage. LABORATORY AND DIAGNOSTIC DATA: White count 14.6, hemoglobin 8.3. BUN 20 and creatinine 0.7. Potassium 3.8. B12 and folate normal. TSH is normal. IMPRESSION: 1. Acute DVT. 2. Left hemiparesis. 3. Cellulitis of the left foot. PLAN: 1. Agree with neurologic recommendations for MRI of the brain and carotid duplex studies. 2. Continue full anticoagulation. 3. May consider transition to oral regimen upon discharge. 4. Antimicrobials per Infectious Diseases application support consultant. 5. Followup lipid panel. Ramy Franks M.D. DR: Robyn JOB#: [id number] CC:
[2018-11-05] VITALS: BP 147/63
[2018-11-05] MEDS: Levofloxacin 250mg/D5W 50ml IVPB SCH (00:34)
[2018-11-05 04:00] VITALS: BP 117/58
[2018-11-05] MEDS ORDERED: AMIKACIN IV SCH (06:00)
[2018-11-05] MEDS ORDERED: D5W IV SCH (06:00)
[2018-11-05] MEDS: Levodopa/Carbidopa 25/100 tab ORAL SCH ×2 (06:33→12:11)
--- NOTE | 2018-11-05 07:30 | NUR ---
HAND-OFF: Report given to Deena SALAS. Endorsed plan of care.
[2018-11-05 08:00] VITALS: BP 136/55
--- NOTE | 2018-11-05 08:05 | NUR ---
NURSE NOTES: Received report from Femi Rn/ Pt is sitting up in bed having breakfast with her daughters help. Bed is in lowest position, side rails up X2, and call light is within reach. Will continue to monitor.
[2018-11-05 08:12] LABS: BASOPHILS % (AUTO) 0.9 % (0.0-2.0); EOSINOPHILS % (AUTO) 1.4 % (0.0-3.0); HEMATOCRIT 27.4 % (37.0-47.0); HEMOGLOBIN 8.5 G/DL (12.0-16.0); LYMPHOCYTES % (AUTO) 17.7 % (20.0-45.0); MEAN CORPUSCULAR VOLUME 96 FL (80-99); MONOCYTES % (AUTO) 9.2 % (1.0-10.0); NEUTROPHILS % (AUTO) 70.8 % (45.0-75.0); PLATELET COUNT 500 K/UL (150-450); RED BLOOD COUNT 2.85 M/UL (4.20-5.40); RED CELL DISTRIBUTION WIDTH 11.9 % (11.6-14.8); WHITE BLOOD COUNT 13.4 K/UL (4.8-10.8)
[2018-11-05 08:18] LABS: ANION GAP 8 mmol/L (5-15); BLOOD UREA NITROGEN 15 mg/dL (7-18); CALCIUM 9.2 MG/DL (8.5-10.1); CARBON DIOXIDE 26 MMOL/L (21-32); CHLORIDE 110 MMOL/L (98-107); CREATININE 0.5 MG/DL (0.55-1.30); SODIUM 144 MMOL/L (136-145)
[2018-11-05] MEDS: Enoxaparin Sodium 300mg/3ml vial SUBQ SCH (09:06)
--- NOTE | 2018-11-05 09:34 | Pulmonology Progress Note ---
Assessment/Plan Assessment/Plan IMPRESSION: 1. 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 2. UTI. 3. Parkinson. 4. DVT. DISCUSSION: 1. Improving slowly with improved leucocytosis 2. DC home on PO Macrobid; has E coli S to it 3. Seen by orthopedics, ID and physical therapy. Subjective Interval Events: Much better; WBC slowly decreasing Constitutional: Reports: no symptoms HEENT: Repors: no symptoms Respiratory: Reports: no symptoms Cardiovascular: Reports: no symptoms Gastrointestinal/Abdominal: Reports: no symptoms Allergies: Coded Allergies: PENICILLINS (Unverified Allergy, Unknown, 11/02/18) SULFA (SULFONAMIDE ANTIBIOTICS) (Unverified Allergy, Unknown, 11/02/18) Uncoded Allergies: PENICILLIN (Allergy, Unknown, 11/02/18) SULFA (Allergy, Unknown, 11/02/18) Objective Last 24 Hour Vital Signs Date Time Temp Pulse Resp B/P (MAP) Pulse Ox O2 Delivery O2 Flow Rate FiO2 11/05/18 04:00 97.6 84 16 117/58 (77) 98 11/05/18 04:00 72 11/05/18 00:00 99.0 79 16 147/63 (91) 97 11/05/18 00:00 78 11/04/18 21:00 Room Air 11/04/18 20:00 84 11/04/18 20:00 98.4 81 16 146/71 (96) 97 11/04/18 16:00 80 11/04/18 16:00 97.4 83 20 141/54 (83) 97 11/04/18 12:00 97.7 84 18 109/55 (73) 97 11/04/18 12:00 76 Intake and Output 11/04/18 11/05/18 19:00 07:00 Intake Total 480 ml Output Total 400 ml 500 ml Balance 80 ml -500 ml Intake Oral 480 ml Output Urine Total 400 ml 500 ml General Appearance: no acute distress HEENT: normocephalic Respiratory/Chest: chest wall non-tender, lungs clear Cardiovascular: normal peripheral pulses, normal rate Microbiology Date/Time Source Procedure Growth Status 11/02/18 16:25 Blood Blood Culture - Preliminary NO GROWTH AFTER 48 HOURS Resulted 11/02/18 16:25 Blood Blood Culture - Preliminary NO GROWTH AFTER 48 HOURS Resulted 11/02/18 18:59 Urine,Clean Catch Urine Culture - Final Escherichia Coli Complete Laboratory Tests 11/04/18 20:45: Erythrocyte Sedimentation Rate 117H, Hemoglobin A1c 4.4, Vitamin D 25-Hydroxy [ Pending], 25-Hydroxy Vitamin D2 [Pending], 25-Hydroxy Vitamin D3 [Pending], Thyroid Stimulating Hormone (TSH) 1.394, Rapid Plasma Reagin [Pending] 11/05/18 07:10: White Blood Count 13.4H, Red Blood Count 2.85L, Hemoglobin 8.5L, Hematocrit 27.4L, Mean Corpuscular Volume 96, Mean Corpuscular Hemoglobin 29.9, Mean Corpuscular Hemoglobin Concent 31.0L, Red Cell Distribution Width 11.9, Platelet Count 500H, Mean Platelet Volume 6.3L, Neutrophils (%) (Auto) 70.8, Lymphocytes (%) (Auto) 17.7L, Monocytes (%) (Auto) 9.2, Eosinophils (%) (Auto) 1.4, Basophils (%) (Auto) 0.9, Sodium Level 144, Potassium Level 4.0, Chloride Level 110H, Carbon Dioxide Level 26, Anion Gap 8, Blood Urea Nitrogen 15, Creatinine 0.5L, Estimat Glomerular Filtration Rate , Glucose Level 107H, Calcium Level 9.2 Current Medications Medications (Trade) Dose Ordered Sig/Preston Route PRN Reason Start Time Stop Time Status Last Admin Dose Admin Acetaminophen (Tylenol) 650 mg Q6H PRN ORAL Mild Pain/Temp > 100.5 11/02/18 22:30 12/02/18 22:29 11/04/18 01:16 Amikacin Protocol (Amikacin pharmacy to dose) 1 ea DAILY PRN MISC Per rx protocol 11/03/18 12:30 12/03/18 12:29 Amikacin Sulfate 300 mg/Dextrose 56.2 ml @ 110.8 mls/ hr Q24H IV 11/04/18 21:00 11/11/18 20:59 11/04/18 20:30 Carbidopa/Levodopa (Sinemet 25/100) 1 tab BID@0700,1200 ORAL 11/05/18 07:00 12/05/18 06:59 11/05/18 06:33 Enoxaparin Sodium (Lovenox) 50 mg Q12HR SUBQ 11/03/18 21:00 12/03/18 20:59 11/05/18 09:06 Levofloxacin 50 ml @ 50 mls/hr Q24H IVPB 11/04/18 00:30 11/11/18 00:29 11/05/18 00:34 Vancomycin HCl (Vanco rx to dose) 1 ea DAILY PRN MISC Per rx protocol 11/03/18 12:30 12/03/18 12:29 Vancomycin HCl 500 mg/Dextrose 110 ml @ 110 mls/hr Q24H IVPB 11/03/18 15:00 11/08/18 14:59 11/04/18 15:12 Anastacio Sloan MD Nov 05, 2018 09:34
[2018-11-05] MEDS ORDERED: Levodopa/Carbidopa 25/100 ORAL (09:35)
[2018-11-05] MEDS ORDERED: NITROFURANTOIN100 M2 ORAL (09:35)
--- NOTE | 2018-11-05 10:27 | Surgery Progress Note ---
Surgery Progress Note Subjective Additional Comments Patient seen and examined bedside. No acute events. Incontinence identified. Leukocytosis improving. Exam otherwise stable. Objective Last 24 Hour Vital Signs Date Time Temp Pulse Resp B/P (MAP) Pulse Ox O2 Delivery O2 Flow Rate FiO2 11/05/18 09:00 Room Air 11/05/18 08:00 97.5 84 21 136/55 (82) 98 11/05/18 04:00 97.6 84 16 117/58 (77) 98 11/05/18 04:00 72 11/05/18 00:00 99.0 79 16 147/63 (91) 97 11/05/18 00:00 78 11/04/18 21:00 Room Air 11/04/18 20:00 84 11/04/18 20:00 98.4 81 16 146/71 (96) 97 11/04/18 16:00 80 11/04/18 16:00 97.4 83 20 141/54 (83) 97 11/04/18 12:00 97.7 84 18 109/55 (73) 97 11/04/18 12:00 76 I&O Intake and Output 11/04/18 11/05/18 19:00 07:00 Intake Total 480 ml Output Total 400 ml 500 ml Balance 80 ml -500 ml Intake Oral 480 ml Output Urine Total 400 ml 500 ml Dressing: saturated Wound: other Drains: other Cardiovascular: RSR Respiratory: decreased breath sounds Abdomen: soft, present bowel sounds, other, non-distended Extremities: no cyanosis, other Laboratory Tests Test 11/04/18 20:45 11/05/18 07:10 Erythrocyte Sedimentation Rate 117 MM/HR (0-30) H Hemoglobin A1c 4.4 % (4.3-6.0) Vitamin D 25-Hydroxy Pending 25-Hydroxy Vitamin D2 Pending 25-Hydroxy Vitamin D3 Pending Thyroid Stimulating Hormone (TSH) 1.394 uiU/mL (0.358-3.740) Rapid Plasma Reagin Pending White Blood Count 13.4 K/UL (4.8-10.8) H Red Blood Count 2.85 M/UL (4.20-5.40) L Hemoglobin 8.5 G/DL (12.0-16.0) L Hematocrit 27.4 % (37.0-47.0) L Mean Corpuscular Volume 96 FL (80-99) Mean Corpuscular Hemoglobin 29.9 PG (27.0-31.0) Mean Corpuscular Hemoglobin Concent 31.0 G/DL (32.0-36.0) L Red Cell Distribution Width 11.9 % (11.6-14.8) Platelet Count 500 K/UL (150-450) H Mean Platelet Volume 6.3 FL (6.5-10.1) L Neutrophils (%) (Auto) 70.8 % (45.0-75.0) Lymphocytes (%) (Auto) 17.7 % (20.0-45.0) L Monocytes (%) (Auto) 9.2 % (1.0-10.0) Eosinophils (%) (Auto) 1.4 % (0.0-3.0) Basophils (%) (Auto) 0.9 % (0.0-2.0) Sodium Level 144 MMOL/L (136-145) Potassium Level 4.0 MMOL/L (3.5-5.1) Chloride Level 110 MMOL/L (98-107) H Carbon Dioxide Level 26 MMOL/L (21-32) Anion Gap 8 mmol/L (5-15) Blood Urea Nitrogen 15 mg/dL (7-18) Creatinine 0.5 MG/DL (0.55-1.30) L Estimat Glomerular Filtration Rate mL/min (>60) Glucose Level 107 MG/DL (74-106) H Calcium Level 9.2 MG/DL (8.5-10.1) Plan Problems: (1) Cellulitis of left foot Assessment & Plan: Pt presented on admission with multiple pressure injuries. L lower ext edematous. DTPI noted to sacrum. Base of wound maroon indurated with surrounding dark brown discoloration. Pt verbalized pain when affected area minimally palpated.(L )1.5cm x (W)1cm. Unstageable pressure injury R buttocks (L)2.5cm x (W)3cm. Base of wound has 100 % slough with erythematous borders.(L)2.5cm x (W)3cm. Non-blanchable erythema periwound. #2 Serous blisters in close proximity noted to L hallux with surrounding non- blanching erythema.(L)1.7cm x (W)1cm. Both heels are boggy with non-blanching erythema. Tx.Plan: Cleanse Wound R buttocks with Saline. Apply Therahoney. Apply Moisture Barrier Paste periwound. Cover with Optifoam drsg. Change every 3 days and prn. Apply Moisture Barrier Paste to Sacrum. Cover with Optifoam drsg. Change every 3 days and prn. Apply Cavilon Skin Barrier to L hallux. cover with Optifoam drsg. Change every 7 days and prn. Apply Cavilon Skin Barrier to both heels. Cover each heel with Optifoam drsg. Change every 7 days and prn. APM/IVAN mattress overlay. Elevate L lower ext. with pillow. Reposition at least every 2hours or as tolerated. Off-load heels with pillow.Leukocytosis elevated ESR abnormal labs afebrile, HD stable does also have UTI will monitor and follow with recs thank you IV abx as per ID Tx UTI (2) Knee pain Assessment & Plan: Findings: There is a suprapatellar effusion. There is severe degenerative narrowing of the lateral joint compartment, with obliteration of the joint space, subchondral sclerosis, and marked degenerative remodeling of the articular surfaces. No acute fractures. No dislocations. Impression: Evidence of joint effusion Severe lateral compartmental degenerative changes, as described No acute bony trauma no acute intervention planned outpatient ortho f/u and re-evaluation for possible aspiration Jake Claire Nov 05, 2018 10:27
[2018-11-05 12:00] VITALS: BP 127/62
--- NOTE | 2018-11-05 12:39 | Diagnostic Imaging Report ---
EXAM: US Duplex Bilateral Extracranial Arteries CLINICAL HISTORY: CVA TECHNIQUE: Real-time duplex ultrasound scan of the extracranial arteries integrating B-mode two-dimensional vascular structure, Doppler spectral analysis and color flow Doppler imaging. COMPARISON: No relevant prior studies available. FINDINGS: Right common carotid artery: No occlusion or significant stenosis on color flow and spectral Doppler imaging. Right internal carotid artery: No occlusion or significant stenosis on color flow and spectral Doppler imaging. Right vertebral artery: Antegrade flow. Right ICA/CCA ratio: Within normal limits. Left common carotid artery: No occlusion or significant stenosis on color flow and spectral Doppler imaging. Left internal carotid artery: No occlusion or significant stenosis on color flow and spectral Doppler imaging. Left vertebral artery: Antegrade flow. Left ICA/CCA ratio: Within normal limits. Soft tissues: Complex locular cystic lesion in the right lobe of the thyroid gland measuring 1.2 x 0.9 cm. Additional cystic or hypoechoic lesion measuring 1.1 x 0.6 cm also in the right lobe. CAROTID STENOSIS REFERENCE USING SRU CRITERIA: Mild - <50% stenosis. ICA PSV is less than 125 cm/second and plaque or intimal thickening is visible. Moderate - 50-69% stenosis. ICA PSV is 125 to 230 cm/second and plaque is visible. Severe - 70-94% stenosis. ICA PSV is more than 230 cm/second and visible plaque with lumen narrowing is seen. Near occlusion - 95-99% stenosis. ICA PSV is variable and significant plaque with luminal narrowing is seen. Occluded - 100% stenosis. No flow identified. IMPRESSION: No occlusion or hemodynamically significant stenosis.
--- NOTE | 2018-11-05 14:27 | Neurology Progress Note ---
Interim History Interim History Interim History Ms. Wells feels better today. She feels less stiff and her tremor is better. As per her daughter she is also sitting more erect. There is been a definite change in her facial expressions. She has tolerated the Sinemet well without any side effects. She continues to be weaker on the left side. She continues to have cognitive dysfunction. As per her nurse plans are to send her home and have her work-up done as an outpatient. Review of Systems Neuro Review of Systems Benign. Objective Physical Exam Last Vital Signs Date Time Temp Pulse Resp B/P (MAP) Pulse Ox O2 Delivery O2 Flow Rate FiO2 11/05/18 12:00 97.5 82 21 127/62 (83) 96 11/05/18 09:00 Room Air Laboratory Tests Test 11/04/18 20:45 11/05/18 07:10 11/05/18 14:00 Erythrocyte Sedimentation Rate 117 MM/HR (0-30) H Hemoglobin A1c 4.4 % (4.3-6.0) Vitamin D 25-Hydroxy Pending 25-Hydroxy Vitamin D2 Pending 25-Hydroxy Vitamin D3 Pending Thyroid Stimulating Hormone (TSH) 1.394 uiU/mL (0.358-3.740) Rapid Plasma Reagin Pending White Blood Count 13.4 K/UL (4.8-10.8) H Red Blood Count 2.85 M/UL (4.20-5.40) L Hemoglobin 8.5 G/DL (12.0-16.0) L Hematocrit 27.4 % (37.0-47.0) L Mean Corpuscular Volume 96 FL (80-99) Mean Corpuscular Hemoglobin 29.9 PG (27.0-31.0) Mean Corpuscular Hemoglobin Concent 31.0 G/DL (32.0-36.0) L Red Cell Distribution Width 11.9 % (11.6-14.8) Platelet Count 500 K/UL (150-450) H Mean Platelet Volume 6.3 FL (6.5-10.1) L Neutrophils (%) (Auto) 70.8 % (45.0-75.0) Lymphocytes (%) (Auto) 17.7 % (20.0-45.0) L Monocytes (%) (Auto) 9.2 % (1.0-10.0) Eosinophils (%) (Auto) 1.4 % (0.0-3.0) Basophils (%) (Auto) 0.9 % (0.0-2.0) Sodium Level 144 MMOL/L (136-145) Potassium Level 4.0 MMOL/L (3.5-5.1) Chloride Level 110 MMOL/L (98-107) H Carbon Dioxide Level 26 MMOL/L (21-32) Anion Gap 8 mmol/L (5-15) Blood Urea Nitrogen 15 mg/dL (7-18) Creatinine 0.5 MG/DL (0.55-1.30) L Estimat Glomerular Filtration Rate mL/min (>60) Glucose Level 107 MG/DL (74-106) H Calcium Level 9.2 MG/DL (8.5-10.1) Vancomycin Level Trough Pending Neurologic Exam Objective PHYSICAL EXAMINATION: GENERAL: She is a well-developed, but lean black lady, lying in bed, in no acute distress. HEAD: Normocephalic and atraumatic. EENT: Examination benign. NECK: No neck rigidity was observed. NEUROLOGICAL EXAMINATION: MENTAL STATUS EXAMINATION: She was awake and alert. She was oriented to self only. She had no idea where she was or what the date was. She was able to recall 3/3 words immediately, but could only remember 2/3 words in 1 minute and 3 minutes. She was unable to tell me who the present President was and who prior presidents were. Her mathematical skills were impaired. Her visuospatial function was also impaired. SPEECH: She had a mild dysarthria. LANGUAGE: She had anomic aphasia. CRANIAL NERVE EXAMINATION: II: The visual goel were intact on confrontation testing. III, IV & : The external ocular movements were full and the pupils 3 mm in diameter, equal, round, regular, and reactive sluggishly to light. V: She had normal facial sensations, and the temporales, masseters, and pterygoids functioned normally. VII: She had a left seventh central facial paresis. VIII: She was able to hear and had no nystagmus. IX: The palate moved symmetrically on phonation. X: She had no hoarseness of voice. XI: The sternocleidomastoids and trapezii functioned normally. XII: The tongue was in the midline without any fasciculations or atrophy. MOTOR SYSTEM: The tone was increased in all four extremities with a combination of mild cogwheel rigidity and gegenhalten. Examination of muscle mass revealed generalized muscle wasting. Examination of power revealed G 5/5 power, except for G 4/5 power in the left finger extensors, and G 3/5 power in the left iliopsoas. It was impossible to test the left knee because of pain. She also had G 4+/5 power in the right iliopsoas. SENSORY EXAMINATION: She had intact sensations to pinprick and light touch. COORDINATION: She performed vlkjow-uf-taad testing slowly bilaterally with a touch of apraxia. She was unable to perform batu-nt-fycw testing. REFLEXES: 2+ on the right and 2++ on the left, at the biceps, triceps, and brachioradialis; 2+ on the right and 1+ on the left at the knees, 0 at both ankles. The plantar responses were flexor bilaterally. STANCE & GAIT: Could not be tested. ABNORMAL MOVEMENTS: Tremor (7 to 8 hertz): G 2/4. Tremor (4 to 5 hertz): G 1/4. Rigidity: G 1/4. Bradykinesia: G 1/4. Hypomimia: G 1/4. Hypophonia: G 1/4. Impression/Recommendations Diagnostic Impression 1. Ms. Cadence Wells is an 88-year-old, right-handed, black lady, with a past history of osteoarthritis and an undefined kind of tremor, which she has had for the last four years or so. Since late 2018, the patient has had problems with walking and lost her ability to climb stairs. For the last few months, she has also been bending to her left side. Her movements have become increasingly slower and her memory has deteriorated. She was hospitalized for a few day history of left knee and leg swelling and on being hospitalized, she was found to have deep venous thrombosis, a urinary tract infection, and an arthritic swollen left knee. 2. She feels better today. She feels less stiff and her tremor is better. As per her daughter she is also sitting more erect. There is been a definite change in her facial expressions. She has tolerated the Sinemet well without any side effects. She continues to be weaker on the left side. She continues to have cognitive dysfunction. As per her nurse plans are to send her home and have her work-up done as an outpatient. 3. On neurological examination, at this time, she is disoriented to place and time. She has significant problems with recent and remote memory, visuospatial function, higher cognitive function, and language. 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 4. Laboratory tests on my initial evaluation revealed that she had a leukocytosis with a WBC count, which was as high as 17,500. She was significantly anemic with a hemoglobin of 8.3 G. The chemistry panel revealed a BUN that was elevated at 32 , glucose that was elevated at 134, an albumin that was low at 2.4, a normal B12 level, and a normal folate. The Urinalysis revealed 3+ leukocyte esterase, 20-30 red blood cells, and 40-60 white blood cells per high-power field. 5. 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 6. 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 7. She also has a left hemiparesis which may be related to an intracranial lesion. 8. In addition she has significant cognitive problems, which may be indicative of a primary degenerative process versus acute intracranial pathology with a superimposed encephalopathy. Recommendations 1. Continue present management. 2. Aggressive treatment of infectious process. 3. Aggressive treatment of DVT. 4. Sinemet 25/100, to be taken at 7 AM, 12 noon and 5 PM. 5. An MRI of the brain should be performed to evaluate the patient for her left hemiparesis and cognitive dysfunction. 6. A Carotid duplex should be performed to evaluate the patient for her left hemiparesis and cerebrovascular disease. 7. The patient should be mobilized with the help of physical and occupational therapy. 8. Patient should be followed regularly by a neurologist. Nawaf Hooper M.D., M.S.P.H. Nawaf Hooper MD Nov 05, 2018 14:27
[2018-11-05] MEDS ORDERED: Vancomycin 500mg/D5W 110ml IVPB SCH ×2 (15:00)
[2018-11-05] MEDS ORDERED: Tubing IV Secondary IV ONE (15:08)
[2018-11-05] MEDS ORDERED: NS 275ml ONE (15:08)
[2018-11-05 16:00] VITALS: BP 135/82
--- NOTE | 2018-11-05 19:19 | NUR ---
HAND-OFF: Report given to Michael Christianson. Plan of care endorsed.
--- NOTE | 2018-11-05 19:25 | NUR ---
NURSE NOTES: Got report from MARITZA Shaffer. Pt in stable condition. Denies any pain. No s/s of distress or discomfort noted. Pt resting in bed comfortably. Bed in low and locked position, call light within reach, bedside table within reach. Will continue to monitor.
[2018-11-05 20:00] VITALS: BP 149/56
--- NOTE | 2018-11-05 21:20 | NUR ---
Nurse Notes: Patient is being discharged from medical care. Awake, alert and oriented x4. Patient and dtr verbalized understanding of After care instructions; at this time patient does not request medications, equipment or placement. All medical devices such as IV, cardiac box, and ID band were removed. Patient discharged via ambulance.
--- NOTE | 2018-11-06 00:15 | Progress Note ---
DATE: 11/05/2018 CARDIOLOGY PROGRESS NOTE SUBJECTIVE: No new chest pain. No shortness of breath. On anticoagulation now for DVT. Remains on antimicrobials for urinary infection. OBJECTIVE: VITAL SIGNS: Blood pressure 117/58 to 147/63, heart rate 72 to 84, respiratory rate 16, temperature 99 max, oxygen saturation 97% on room air. LUNGS: Clear. Chest wall with no focal tenderness. CARDIAC: Regular rhythm rate. Normal S1, S2 with a fourth heart sound. ABDOMEN: Soft. There is less edema of the left leg. IMPRESSION: 1. Cellulitis lower extremity. 2. Acute DVT. 3. Urinary tract infection. 4. Parkinson disease. 5. No signs of acute coronary insufficiency. 6. Hypertension with adequate blood pressure control. PLAN: 1. Stable for outpatient management on current cardiovascular regimen and full anticoagulation. 2. Would consider IVC filter if contraindications for anticoagulation develop in the future. Ramy Franks M.D. DR: MAGUE JOB#: [id number] CC:
--- NOTE | 2018-11-06 15:31 | Cardiology Report ---
APPROVED REPORT EKG Measurement Heart [id number] Sinus tachycardia Otherwise normal ECG
--- NOTE | 2018-11-07 08:51 | Cardiology Report ---
APPROVED REPORT EXAM: Two-dimensional and M-mode echocardiogram with Doppler and color Doppler. INDICATION Chest Pain M-Mode DIMENSIONS IVSd1.0 (0.7-1.1cm)Left Atrium (MM)3.2 (1.6-4.0cm) LVDd4.4 (3.5-5.6cm)Aortic Root2.3 (2.0-3.7cm) PWd1.1 (0.7-1.1cm)Aortic Cusp Exc.1.5 (1.5-2.0cm) LVDs2.9 (2.5-4.0cm) PWs1.3 cm Normal left ventricular chamber size, systolic function and wall motion. Left ventricular ejection fraction estimated to be 60-65 %. No left ventricular hypertrophy. No evidence of pericardial effusion. Left atrial size at upper limits of normal. Right cardiac chamber sizes are within normal limits. Focal aortic valve sclerosis with adequate cusp excursion. Thickened mitral valve leaflets with normal excursion. Mitral annulus and aortic root calcification. Pulmonic valve not obtainable. Normal tricuspid valve structure. IVC at normal size with physiologic collapse. A color flow and spectral Doppler study was performed and revealed: Moderate aortic regurgitation. Moderate mitral regurgitation. Mitral diastolic velocities suggest reduced left ventricular relaxation c/w mild LV diastolic dysfunction (Grade I). Trace tricuspid regurgitation. Tricuspid systolic velocities suggests peak right ventricular systolic pressure of 11 mmHg.
--- NOTE | 2018-11-07 09:30 | Discharge Summary ---
Discharge Summary Discharge Summary _ DATE OF ADMISSION: 11/02/2018 DATE OF DISCHARGE: 11/05/2018 DISCHARGED BY: Dr. Sloan REASON FOR ADMISSION: 88 years old female with past medical history of Parkinson disease and osteoarthritis, wheelchair-bound , presented with pain and swelling in the left leg for several weeks and generalized weakness. Patient was worked-up in the emergency department and found to have acute DVT of left common femoral and popliteal veins. X-ray of the left knee revealed evidence of joint effusion and severe lateral compartment degenerative changes. No acute bony trauma. Chest x-ray demonstrated no acute cardiopulmonary pathology. Laboratory work-up revealed leukocytosis WBC 17.5, hemoglobin 10.1, hematocrit 30.2 . Lactic acid 1.6. ESR 96. CRP 17.7 . Stable electrolytes. BUN 32, creatinine 0.8. Urinalysis revealed evidence of UTI, +3 protein. +5 blood In emergency department due to leukocytosis with left shift, elevated ESR and CRP and subsequent concern for septic joint , arthrocentesis was performed , which extracted straw-colored clear fluid which was had been sent for analysis. Patient received Lovenox and admitted for further management. CONSULTANTS: glass presser neurologist Dr. Hooper ID specialist orthopedic surgeon Dr. Verdugo general surgery Dr. Claire [facility] COURSE: Patient admitted to telemetry floor. Geospatial Imagery Intelligence Analyst followed. Patient started on full anticoagulation for acute DVT. Infectious disease specialist followed. Blood cultures were negative. Urine culture revealed E. coli. Patient was treated with antibiotic for urinary tract infection /pyelonephritis. Patient intially had intermittent fever along with leukocytosis. Synovial fluid analysis showed evidence of crystals, consistent with calcium pyrophosphate crystals/pseudogout. Orthopedic surgeon seen and evaluated the patient. Per orthopedic surgeon , patient had end-stage osteoarthritis of the left knee. Given her age and her comorbidities , she was not a good candidate for any type of surgical intervention. Orthopedic surgeon recommended brace or intra-articular cortisone injection. Patient can follow-up with orthopedic surgeon as outpatient. Blood pressure was stable with adequate blood pressure control. Geospatial Imagery Intelligence Analyst recommended to consider IVC filter should any contraindication for anticoagulation develop in the future. At this time continue on current cardiovascular regimen and full anticoagulation. Echocardiogram revealed preserved ejection fraction 60 to 65% ,no left ventricular hypertrophy. No evidence of pericardial effusion. No evidence of wall motion abnormality. Right ventricular systolic pressure of 11. General surgeon followed. Wound care for left foot cellulitis provided as per surgeon recommendation. General surgeon stressed importance of follow-up as outpatient with orthopedic surgeon . Neurologist seen and evaluated patient due to Parkinson disease. Sinemet was continued. Neurologist recommended MRI of the brain and carotid duplex . Carotid duplex revealed no evidence of occlusion or hemodynamically significant stenosis. MRI with the brain can be done as outpatient. Renal parameters and electrolytes were closely monitored. BUN down to 15, creatinine remained stable. Prerenal azotemia resolved. Hemoglobin and hematocrit were closely monitored with goal to keep hemoglobin above 7. Prior to discharge hemoglobin 8.5 ,hematocrit 27.4. Stable B12 and folate level. TSH within normal limits. Sinemet continued. Protein supplements implemented in diet as per certified registered nurse anesthetist recommendation. Leukocytosis trended down to 13.4. Intermittent fevers resolved. Patient clinically stabilized and was ready for discharge home on oral antibiotics to complete the course. Outpatient follow-up with orthopedic surgeon recommended. FINAL DIAGNOSES: Sepsis E. coli UTI/pyelonephritis Left foot cellulitis Acute DVT left lower extremity , common femoral and popliteal vein End-stage osteoarthritis left knee Parkinson's disease Hypertension Severe protein calorie malnutrition Prerenal azotemia DISCHARGE MEDICATIONS: See Medication Reconciliation list. DISCHARGE INSTRUCTIONS: Patient was discharged home. Follow up with primary care provider in one week. Outpatient follow-up with orthopedic surgeon recommended I have been assigned to dictate discharge summary for this account. I was not involved in the patient's management. Aga Dickerson NP Nov 07, 2018 09:30
--- NOTE | 2018-11-07 11:22 | NUR ---
*-* INSURANCE *-* UPDATED CLINICALS HAVE BEEN FAXED TO: [facility] [employer]#[id number] TENSIONING MACHINE OPERATOR: QUINN PH#[phone] FAX#[phone] REVIEWS/CLINICALS Addendum: 11/07/18 at 1123 by IFRAH MENDEZ CM DISCHARGE SUMMARY ALSO FAXED
== END 2018-11-05 21:20 | disposition home or self-care (01) | DRG 871 ==
LOC: EMR 16:28 → EDBEDREQ 17:41 → 2E 18:28 → EDBEDREQ 19:52 → 2E 20:24
DX: A41.9 Sepsis, unspecified organism (principal); E43 Unspecified severe protein-calorie malnutrition; N39.0 Urinary tract infection, site not specified; N12 Tubulo-interstitial nephritis, not specified as acute or chronic; I82.432 Acute embolism and thrombosis of left popliteal vein; I82.412 Acute embolism and thrombosis of left femoral vein; G81.94 Hemiplegia, unspecified affecting left nondominant side; Z68.1 Body mass index [BMI] 19.9 or less, adult; L03.032 Cellulitis of left toe; M13.862 Other specified arthritis, left knee; Z88.0 Allergy status to penicillin; Z88.2 Allergy status to sulfonamides; G20 Parkinson's disease; B96.20 Unspecified Escherichia coli [E. coli] as the cause of diseases classified elsewhere
CPT/HCPCS: 36415; 71045; 80048; 80053; 80150; 80202; 81003; 82306; 82550; 82553; 82607; 82746; 83036; 83605; 83735; 84100; 84443; 84484; 85025; 85610; 85651; 85730; 86140; 86592; 87040; 87086; 87181; 89050; 89060; 93005; 93306; 93880; 93971; 96361; 96365; 96368; 99291